=== PATIENT | female | born 1970 | race Caucasian/White ===

== ENCOUNTER 2018-07-06 08:23 | Outpatient (REF) | payer BC, SELFPAY ==
[2018-07-06 12:07] LABS: ALT 34 U/L (12-78); AST 17 U/L (15-37); Albumin 3.3 g/dL (3.4-5.0); Alkaline Phosphatase 69 U/L (46-116); Anion Gap 10.7 mmol/L (3-11); BUN 19 mg/dL (7-18); Bilirubin, Total 0.3 mg/dL (0.2-1.0); CO2 26.3 mmol/L (21.0-32.0); CREATININE 0.84 mg/dL (0.55-1.02); Chloride 102 mmol/L (98-107); Glucose 173 mg/dL (70-100); Potassium 4.3 mmol/L (3.5-5.1); Sodium 139 mmol/L (136-145); Total Protein 7.1 g/dL (6.4-8.2)
== END 2018-07-06 08:43 ==
LOC: NCHCN 08:23
PROVIDERS: PCP Nurse Practitioner Family; Visit Provider Nurse Practitioner
DX: I10 Essential (primary) hypertension (principal); E11.9 Type 2 diabetes mellitus without complications; E78.5 Hyperlipidemia, unspecified
CPT/HCPCS: 80053

== ENCOUNTER 2018-07-19 17:29 | Outpatient (REF) | payer BC, SELFPAY ==
[2018-07-19 19:13] LABS: COMMENT (LAB VIEW ONLY) 74.13 mg/dL; Microalb ug/mg Crea 70.3 ug/mg Cr
== END 2018-07-19 17:49 ==
LOC: NCHCN 17:29
PROVIDERS: PCP Nurse Practitioner Family; Visit Provider Nurse Practitioner
DX: I10 Essential (primary) hypertension (principal); E11.9 Type 2 diabetes mellitus without complications
CPT/HCPCS: 82043; 82570

== ENCOUNTER 2018-11-12 00:36 | Outpatient (CLI) | payer BC, SELFPAY ==
--- NOTE | 2018-11-12 11:00 | DI.CT_ITS ---
SYMPTOMS/DIAGNOSIS: CHRONIC MAXILLARY SINUSITIS, J32.[address]: The exam was performed according to the Tizaro protocol. There is circumferential mucosal thickening in the left maxillary sinus with an additional smaller air fluid level. A small amount of mucous is seen at the floor of the right maxillary sinus. There is mild ethmoid sinus mucosal thickening. The sphenoid and frontal sinuses as well as mastoid air cells appear clear. No sinus expansion or bony erosions are seen. The orbits are unremarkable. IMPRESSION: Mild chronic sinus disease greatest of the left maxillary sinus with superimposed air fluid level which may indicate superimposed acute sinusitis.
== END 2018-11-12 00:56 ==
PROVIDERS: PCP Nurse Practitioner; Visit Provider Otolaryngology Otolaryngology/Facial Plastic Surgery
DX: J32.0 Chronic maxillary sinusitis (principal); J01.00 Acute maxillary sinusitis, unspecified
CPT/HCPCS: 70486

== ENCOUNTER 2019-01-27 17:33 | Emergency (ER) | payer BC, SELFPAY ==
--- NOTE | 2019-01-27 17:40 | NUR.NOTE ---
pt states that approximately a month ago she developed pain in her right elbow that has gradual increased pain is primarily there when she straightness her arm. pt has an appointment with her PCP on Thursday however felt that this could not wait
[2019-01-27 17:43] VITALS: PULSE 80; RESP 17; TEMP 36.7; O2SAT 97
--- NOTE | 2019-01-27 17:52 | W.ED.GENAD ---
Discharge Plan Disposition Patient Disposition: HOME Condition: Improving Discharge Details Chief Complaint: Orthopedic Clinical Impression: Epicondylitis, lateral, right Primary Care Provider: Deidra Davis ED Provider: Martin Mehta Home Meds and New Rx's Prescriptions: Continued metformin [Glucophage] 1,000 MG tablet 1,000 mg PO BID@0800,1700 RF: 0 glyburide [Diabeta] 2.5 MG tablet 2.5 mg PO DAILY RF: 0 lisinopril 2.5 MG tablet 1.5 mg PO DAILY RF: 0 naproxen 500 MG tablet 500 mg PO BID PRN PRNQty: 20 RF: 0 Discharge Instructions Additional Instructions: Remove Lidoderm patch in 12 hours time. Follow-up with physical therapy as prescribed. Sling as needed for comfort. May use Tylenol and/or naproxen as needed for pain. Return for any worsening or acute concern Stand Alone Forms: Physical Therapy Referral Medical Decision Making 40-year-old female presents from home with right arm pain that worsened after spring cleaning. She has localized right lateral epicondylar tenderness. Must rule out underlying bony sister occult fracture, more consistent with lateral epicondylitis. Radiograph obtained without evidence of underlying bony injury. Patient given sling, Lidoderm patch, instructions for outpatient care with referral to physical therapy as she may benefit from iontophoresis. [facility] General Mode of arrival: ambulatory. Date/Time Provider Initiated Documentation: 01/27/19 17:45. Limitations to Documentation: no limitations. Information obtained by: patient. History of Present Illness 48 year old F presents to the emergency department with the chief complaint of Right elbow pain, worse after spring cleaning, described as moderate and similar to prior episodes, Quality is described as dull and constant, and is localized to the right and upper extremity. Patient reports no radiation. Patient started experiencing this hour(s) and it has been constant. Rest improves symptom(s), Movement worsens symptoms . Patient notes no other symptoms.. Patient did receive the following treatments prior to arrival, none Related Data Home Medications Medication Instructions Recorded Confirmed glyburide [Diabeta] 2.5 mg PO DAILY 02/17/13 01/27/19 lisinopril 1.5 mg PO DAILY 02/17/13 01/27/19 metformin [Glucophage] 1,000 mg PO BID@0800,1700 02/17/13 01/27/19 naproxen 500 mg PO BID PRN PRN #20 tab 10/08/14 01/27/19 Previous Rx's Medication Instructions Recorded naproxen 500 mg PO BID PRN PRN #20 tab 10/08/14 Allergies Allergy/AdvReac Type Severity Reaction Status Date / Time Iodinated Contrast- Oral and Allergy Severe Unverified 01/27/19 17:47 IV Dye azithromycin Allergy Unknown unknown Unverified 01/27/19 17:47 tramadol HCl [From Ultram] Allergy Unknown see Unverified 01/27/19 17:47 comments General Stated Complaint: Orthopedic GENO: 5 Review of Systems Review of Systems No direct trauma. No numbness or tingling. Patient has otherwise recently been well. 6 systems reviewed and otherwise negative REPLACED BY [facility] Social History Smoking/Tobacco Use Status: Never Alcohol Intake: never Drug use: Never Substance use type: does not use Do you feel safe at home: Yes Do you feel safe in your relationship?: Yes Exam Narrative Exam Narrative: GEN: awake, alert, oriented 3. Pleasant, well groomed, interactive. HEAD: Normocephalic, atraumatic ENT: Mucous membranes moist, oropharynx unremarkable, External ear exam unremarkable EYES: PERRL, EOMI NECK: Full ROM, no ROBERT, no menigismus CHEST/RESP: Nontender, clear to auscultation bilateral, no wheeze/rhonchi/rales CARDIOVASCULAR: RRR, no murmur, rub cameron. 2+ Rad pulse bilateral EXT: Full ROM, no edema, no rash. Right lateral epicondylar tenderness, worse with resisted extension of the wrist. Sensation intact throughout. Normal capillary refill Neuro: Grossly normal neurologic exam, conversant, interactive. Psych: Speech fluent, thoughts congruent, affect normal Course Vital Signs Temperature 36.7 C 01/27/19 17:43 Pulse 80 01/27/19 17:43 Respiratory Rate 17 01/27/19 17:43 Pulse Oximetry 97 01/27/19 17:43 Temperature 36.7 C 01/27/19 17:43 Temperature Source Skin 01/27/19 17:43 Pulse 80 01/27/19 17:43 Respiratory Rate 17 01/27/19 17:43 Respiratory Effort 01/27/19 17:48 Blood Pressure Position Sitting 01/27/19 17:43 Pulse Oximetry 97 01/27/19 17:43 Oxygen Delivery Method Room Air 01/27/19 17:43 Oxygen Flow Rate 0 01/27/19 17:43 Pain Level 10 01/27/19 17:43
--- NOTE | 2019-01-27 18:37 | DI.RAD_ITS ---
SYMPTOM/DIAGNOSIS: WORSENING RT ELBOW PAIN RIGHT ELBOW: No fracture or dislocation is seen. No joint effusion or significant degenerative changes are identified. No joint space loose bodies are seen. IMPRESSION: Negative right elbow.
[2019-01-27] MEDS: Lidocaine 5% Patch 1 PATCH TP (18:45)
--- NOTE | 2019-01-27 19:10 | DI.VRAD_ITS ---
EXAM: XR Right Elbow Complete, 3 or more Views EXAM DATE/TIME: 01/27/2019 6:36 PM CLINICAL HISTORY: 48 years old, female; Patient HX: Increasing right elbow pain. TECHNIQUE: Imaging protocol: XR Right elbow. Views: 3 or more views. COMPARISON: No relevant prior studies available. FINDINGS: Bones/joints: Osseous anatomic alignment is well preserved. No acutely displaced fracture or dislocation. Joint spaces are well preserved. Soft tissues: Normal. IMPRESSION: Etiology of the patient's elbow pain is not elucidated in this examination. Dictated and Authenticated by: Bradford Hanley MD. Ordering:LOGAN Salazar MD
[2019-01-27 19:32] VITALS: PULSE 80; RESP 17; TEMP 36.7; O2SAT 97
== END 2019-01-27 19:33 | disposition home or self-care (01) ==
PROVIDERS: Emergency Provider Emergency Medicine; PCP Nurse Practitioner
DX: M77.11 Lateral epicondylitis, right elbow (principal)
CPT/HCPCS: 99283; 73080; L3650

== ENCOUNTER 2019-10-01 09:58 | Outpatient (CLI) | payer BC, SELFPAY ==
[2019-10-01 10:51] LABS: Hemoglobin A1C 9.8 % (3.8-5.6)
[2019-10-01 12:18] LABS: Calculated LDL 126 mg/dL; Cholesterol 216 mg/dL (<200); HDL Cholesterol 37 mg/dL (40-60); Triglyceride 268 mg/dL (<150)
== END 2019-10-01 10:18 ==
PROVIDERS: PCP Nurse Practitioner; Visit Provider Nurse Practitioner
DX: E11.9 Type 2 diabetes mellitus without complications (principal); Z13.6 Encounter for screening for cardiovascular disorders
CPT/HCPCS: 36415; 80061; 83036

== ENCOUNTER 2020-02-20 04:14 | Outpatient (CLI) | payer BC, SELFPAY ==
[2020-02-20 08:02] LABS: Hemoglobin A1C 6.9 % (3.8-5.6)
[2020-02-20 08:55] LABS: Calculated LDL 103 mg/dL (<100); Cholesterol 179 mg/dL (<200); HDL Cholesterol 36 mg/dL (40-60); Triglyceride 204 mg/dL (<150)
== END 2020-02-20 04:34 ==
PROVIDERS: PCP Nurse Practitioner; Visit Provider Nurse Practitioner
DX: E11.65 Type 2 diabetes mellitus with hyperglycemia (principal); E78.1 Pure hyperglyceridemia
CPT/HCPCS: 36415; 80061; 83036

== ENCOUNTER 2021-02-22 21:24 | Outpatient (REF) | payer BC, SELFPAY ==
[2021-02-24 22:36] LABS: COVID-19 RT-PCR UVMMC Result Positive (Negative)
== END 2021-02-22 21:25 | disposition home or self-care (01) ==
LOC: LBN 21:24
PROVIDERS: PCP Nurse Practitioner; Visit Provider Nurse Practitioner Family
DX: Z20.822 Contact with and (suspected) exposure to COVID-19 (principal); J02.9 Acute pharyngitis, unspecified
CPT/HCPCS: U0003

== ENCOUNTER 2021-09-03 20:44 | Outpatient (REF) | payer BC, SELFPAY ==
[2021-09-03 22:10] LABS: Abs Immature Grans 0.04 10^3/uL (0.0-0.06); Absolute Basophil Count 0.09 10^3/uL (0.0-0.2); Absolute Eosinophil Count 0.21 10^3/uL (0.0-0.7); Absolute Lymphocyte Count 2.82 10^3/uL (1.2-3.4); Absolute Monocyte Count 0.71 10^3/uL (0.1-0.8); Absolute Neutrophil Count 6.96 10^3/uL (1.2-6.7); Basophils % 0.8; Eosinophils % 1.9; HCT 41.5 % (36.0-46.0); HGB 13.2 g/dL (11.2-15.7); Immature Grans % 0.4; MCH 27.3 pg (27.0-33.0); MCHC 31.8 % (32.0-36.0); MCV 85.9 fL (80-95); Monocytes % 6.6; Neutrophils % 64.3; Nucleated RBC 0 %; Platelet Count 402 10^3/uL (130-400); RBC 4.83 10^6/uL (3.93-5.22); RDW 13.8 % (11.7-14.6); RDW-SD 43.5 fL; WBC 10.83 10^3/uL (4.4-10.8)
[2021-09-03 22:12] LABS: Bilirubin Negative (Negative); Blood Trace-lysed (Negative); Clarity Clear (Clear); Glucose 100 mg/dL (Negative); Ketones Negative (Negative); Leukocyte Esterase Trace (Negative); Nitrite Negative (Negative); Urobilinogen 0.2 EU/dL (Up TO 0.2)
[2021-09-03 22:23] LABS: ALT 34 U/L (14-59); AST 16 U/L (15-37); Albumin 3.3 g/dL (3.4-5.0); Alkaline Phosphatase 80 U/L (46-116); Anion Gap 10.1 mmol/L (3-11); BUN 10 mg/dL (7-18); Bilirubin, Total 0.2 mg/dL (0.2-1.0); CO2 25.9 mmol/L (21.0-32.0); CREATININE 1.1 mg/dL (0.55-1.02); Calcium 8.9 mg/dL (8.5-10.1); Chloride 100 mmol/L (98-107); Estimated GFR 52.36 (mL/min/1.73m2); Glucose 248 mg/dL (74-106); Potassium 4.5 mmol/L (3.5-5.1); Sodium 136 mmol/L (136-145); Total Protein 7.5 g/dL (6.4-8.2)
[2021-09-03 22:37] LABS: Bacteria Rare HPF (Negative); C & S Indicated? No; Crystals Negative HPF (Negative); Epithelial Cells Many HPF (Negative); Mucus Negative (Negative); RBC 0-2 HPF (0-2)
== END 2021-09-03 20:45 | disposition home or self-care (01) ==
LOC: LBN 20:44
PROVIDERS: PCP Nurse Practitioner; Visit Provider Nurse Practitioner Family
DX: R10.9 Unspecified abdominal pain (principal); R39.89 Other symptoms and signs involving the genitourinary system
CPT/HCPCS: 80053; 81003; 81015; 85025

== ENCOUNTER 2021-09-17 03:13 | Outpatient (CLI) | payer BC, SELFPAY ==
[2021-09-17 07:37] LABS: HCT 42.6 % (36.0-46.0); HGB 13.3 g/dL (11.2-15.7); MCHC 31.2 % (32.0-36.0); MCV 86.6 fL (80-95); MPV 9.7 fL (8.0-11.0); Platelet Count 355 10^3/uL (130-400); RBC 4.92 10^6/uL (3.93-5.22); WBC 12.84 10^3/uL (4.4-10.8)
== END 2021-09-17 03:14 | disposition home or self-care (01) ==
LOC: LBO 03:13
PROVIDERS: PCP Nurse Practitioner; Visit Provider Nurse Practitioner
DX: D72.829 Elevated white blood cell count, unspecified (principal)
CPT/HCPCS: 36415; 85027

== ENCOUNTER 2021-10-01 02:35 | Outpatient (CLI) | payer BC, SELFPAY ==
[2021-10-01 07:40] LABS: Abs Immature Grans 0.05 10^3/uL (0.0-0.06); Absolute Basophil Count 0.13 10^3/uL (0.0-0.2); Absolute Eosinophil Count 0.39 10^3/uL (0.0-0.7); Absolute Monocyte Count 0.74 10^3/uL (0.1-0.8); Absolute Neutrophil Count 7.06 10^3/uL (1.2-6.7); Basophils % 1.1; Eosinophils % 3.4; HCT 42.4 % (36.0-46.0); HGB 13.3 g/dL (11.2-15.7); Immature Grans % 0.4; Lymphocytes % 27.7; MCH 27.1 pg (27.0-33.0); MCHC 31.4 % (32.0-36.0); MCV 86.4 fL (80-95); MPV 9.5 fL (8.0-11.0); Monocytes % 6.4; Nucleated RBC 0 %; Platelet Count 399 10^3/uL (130-400); RBC 4.91 10^6/uL (3.93-5.22); RDW 14.1 % (11.7-14.6); RDW-SD 44.9 fL; WBC 11.57 10^3/uL (4.4-10.8)
== END 2021-10-01 02:36 | disposition home or self-care (01) ==
LOC: LBO 02:35
PROVIDERS: PCP Nurse Practitioner; Visit Provider Nurse Practitioner
DX: D72.829 Elevated white blood cell count, unspecified (principal)
CPT/HCPCS: 36415; 85025

== ENCOUNTER 2021-12-11 20:38 | Outpatient (REF) | payer BC, SELFPAY ==
[2021-12-11 20:48] LABS: Bilirubin Negative (Negative); Blood Large (Negative); Clarity Sl Cloudy (Clear); Glucose 500 mg/dL (Negative); Ketones Negative (Negative); Leukocyte Esterase Small (Negative); Nitrite Negative (Negative); Urobilinogen 0.2 EU/dL (Up TO 0.2)
[2021-12-11 20:55] LABS: Bacteria Rare HPF (Negative); C & S Indicated? No/Sq. Contamination; Crystals Negative HPF (Negative); Epithelial Cells Many HPF (Negative); Mucus Negative (Negative); RBC >50 HPF (0-2)
== END 2021-12-11 20:39 | disposition home or self-care (01) ==
LOC: LBN 20:38
PROVIDERS: PCP Nurse Practitioner; Visit Provider Physician Assistant
DX: N39.0 Urinary tract infection, site not specified (principal); N76.0 Acute vaginitis
CPT/HCPCS: 81003; 81015; 87480; 87510; 87660

== ENCOUNTER 2022-02-05 19:43 | Outpatient (REF) | payer BC, SELFPAY ==
[2022-02-05 19:55] LABS: Bilirubin Negative (Negative); Blood Large (Negative); Clarity Clear (Clear); Glucose Negative (Negative); Ketones Negative (Negative); Leukocyte Esterase Small (Negative); Nitrite Negative (Negative); Urobilinogen 0.2 EU/dL (Up TO 0.2); pH 5.5 (5-8)
[2022-02-05 20:05] LABS: Bacteria Negative HPF (Negative); C & S Indicated? Yes; Crystals Negative HPF (Negative); Epithelial Cells Moderate HPF (Negative); Mucus Negative (Negative); RBC >50 HPF (0-2)
== END 2022-02-05 19:44 | disposition home or self-care (01) ==
LOC: LBN 19:43
PROVIDERS: PCP Nurse Practitioner; Visit Provider Physician Assistant
DX: R39.89 Other symptoms and signs involving the genitourinary system (principal)
CPT/HCPCS: 81003; 81015; 87086

== ENCOUNTER 2022-02-07 02:03 | Outpatient (CLI) | payer BC, SELFPAY ==
[2022-02-07 08:49] LABS: Abs Immature Grans 0.06 10^3/uL (0.0-0.06); Absolute Eosinophil Count 0.18 10^3/uL (0.0-0.7); Absolute Monocyte Count 0.63 10^3/uL (0.1-0.8); Absolute Neutrophil Count 6.37 10^3/uL (1.2-6.7); Eosinophils % 1.8; HCT 43.2 % (36.0-46.0); HGB 13.9 g/dL (11.2-15.7); Immature Grans % 0.6; Lymphocytes % 26.9; MCH 26.8 pg (27.0-33.0); MCHC 32.2 % (32.0-36.0); MCV 83 fL (80-95); MPV 9.7 fL (8.0-11.0); Monocytes % 6.3; Neutrophils % 63.4; Platelet Count 421 10^3/uL (130-400); RBC 5.18 10^6/uL (3.93-5.22); RDW 14.8 % (11.7-14.6); RDW-SD 45.1 fL; WBC 10.04 10^3/uL (4.4-10.8)
[2022-02-07 09:55] LABS: ALT 52 U/L (14-59); AST 34 U/L (15-37); Albumin 3.7 g/dL (3.4-5.0); Alkaline Phosphatase 74 U/L (46-116); Anion Gap 11.7 mmol/L (3-11); BUN 16 mg/dL (7-18); Bilirubin, Total 0.3 mg/dL (0.2-1.0); CO2 23.3 mmol/L (21.0-32.0); Calcium 9.1 mg/dL (8.5-10.1); Chloride 105 mmol/L (98-107); Estimated GFR 58.45 (mL/min/1.73m2); Glucose 190 mg/dL (74-106); Potassium 4.8 mmol/L (3.5-5.1); Sodium 140 mmol/L (136-145); Total Protein 7.7 g/dL (6.4-8.2)
== END 2022-02-07 02:04 | disposition home or self-care (01) ==
LOC: LBO 02:03
PROVIDERS: PCP Nurse Practitioner; Visit Provider Physician Assistant
DX: R10.9 Unspecified abdominal pain (principal)
CPT/HCPCS: 36415; 80053; 85025

== ENCOUNTER 2022-06-26 01:04 | Outpatient (CLI) | payer BC, SELFPAY ==
--- NOTE | 2022-06-26 07:07 | DI.NM_ITS ---
APPROVED REPORT Exam: Exercise Treadmill Patient Location: Out-Patient Room/Bed: Stress Nurse: Elissa Goncalves RN Ordering Provider:CHAPITO ONEAL, Contact Number: [phone] BMI: 34.00 Baseline Rhythm: Sinus Rhythm Indications: Chest pain Medical History Medical History: DM2. HTN. Single Kidney. Hypertriglyceridemia. Cardiac Medications: Amlodipine. Losartan. Metformin. Semaglutide. Glargine Insulin. Allergies: Iodinated Contrast. Azithromycin. Tramadol. Cardiac Risk Factors: Family history. HTN. DM2. HTN. Hypertriglceridemia. Previous Cardiac Procedures: None. Pretest Chest Pain Characteristics: No chest pain Exercise History: Sedentary Physical Disabilities: None. Lung Sounds: Clear to auscultation Heart Sounds: Regular Stress Test Details Test: Exercise stress testing was performed using a Michele protocol. Nuclear Acquisition: Rest Tc-99m/Stress Tc-99m 1 day Rest Isotope: Tc-99m Sestamibi. Dose: 10.7 Date: 06/26/2022 Injection Time: 0850 Stress Isotope: Tc-99m Sestamibi. Dose: 31 Date: 06/26/2022 Injection Time: 1010 HR Resting HR Supine: 80 bpm Max Heart Rate (APMHR): 168.304244 bpm Resting HR Standin bpm Target HR (85% APMHR): 142.463137 bpm Max HR Achieved: 158 bpm % of APMHR: 94.05 Recovery HR: 103 bpm HR response to stress: Normal HR response to stress BP Resting BP Supine: 152/80 mmHg Resting BP Standin/84 mmHg Max BP: 194/60 mmHg Recovery BP: 150/84 mmHg BP response to stress: Normal blood pressure response to stress. ECG Resting ECG: Sinus Rhythm Ectopy: None Stress ECG: Sinus Tachycardia ST Change: No significant ST segment changes noted Arrhythmia: None Recovery ECG: Sinus Rhythm Recovery ST Change: No significant ST segment changes noted Recovery Arrhythmia: None Clinical Reason for Termination: Fatigue Stress Symptoms: General Fatigue Exercise duration: 8 min2 sec Highest Stage Reached: Stage 3: 3.4 mph at 14% grade. Exercise capacity: 10 METs Scale: Sedentary Angina Score: None Rate Pressure Product: [id number] Stress ECG Conclusion 1. Resting electrocardiogram was within normal limits 2. Patient exercised on the Michele protocol and completed a workload of 10 METS 3. Normal heart rate and blood pressure response to exercise. The patient achieved 92% of predicted heart rate for age 4. Electrocardiographic portion of the test was nondiagnostic due to excessive artifact 5. See MPI report Stress Test Summary STAGE Time (mins) Speed (mph) Grade (%) HR BP SpO2 SYMPTOMS METS Supine 80 152/80 Standing 98 150/84 1 3 1.7 10 126 156/74 4.5 2 6 2.5 12 136 164/78 7 1 min recovery 133 194/60 98 3 min recovery 108 168/70 6 min recovery 103 150/84 MPI Conclusion Myocardial perfusion is normal without evidence of ischemia or prior infarction EF 57%, normal wall motion Radiologist Interpretation Radiologist Interpretation by: Sarabjit Julio MD Interpretation Date/Time: 06/26/2022 16:54:29
== END 2022-06-26 01:24 ==
LOC: DI 01:04
PROVIDERS: PCP Nurse Practitioner Family; Visit Provider Family Medicine
DX: R07.9 Chest pain, unspecified (principal); I10 Essential (primary) hypertension; E11.9 Type 2 diabetes mellitus without complications; E78.1 Pure hyperglyceridemia
CPT/HCPCS: 78452; 93017

== ENCOUNTER 2022-12-15 10:21 | Outpatient (CLI) | payer BC, SELFPAY ==
--- NOTE | 2022-12-15 10:00 | DI.RAD_ITS ---
Exam(s) XR CHEST 2V PA LATERAL EXAM: XR CHEST 2V PA LATERAL CLINICAL HISTORY: no improvement COUGH R05.9. TECHNIQUE: 2D digital imaging was performed. COMPARISON: No exams were available for comparison FINDINGS: 2 views: Heart size is normal. The mediastinum is not widened. Lungs are clear. No infiltrates nor pleural effusions. IMPRESSION: No acute pulmonary findings. DATA REPOSITORY: RADIATION DOSE DELIVERED:
== END 2022-12-15 10:41 ==
LOC: DI 10:22
PROVIDERS: PCP Nurse Practitioner Family; Visit Provider Nurse Practitioner Family
DX: R05.8 Other specified cough (principal)
CPT/HCPCS: 71046

== ENCOUNTER 2023-01-01 02:37 | Outpatient (CLI) | payer BC, SELFPAY ==
--- NOTE | 2023-01-01 07:45 | DI.RAD_ITS ---
Exam(s) XR SHOULDER LT COMPLETE 2+V EXAM: XR SHOULDER LT COMPLETE 2+V CLINICAL HISTORY: LROM x 2 weeks, no trauma,LT SHOULDER PAIN, M25.512. TECHNIQUE: 2D digital imaging was performed. Five views. COMPARISON: No exams were available for comparison FINDINGS: BONES: No acute fracture is present. No bony destructive lesion is seen. JOINTS: No dislocation present. Mild spurring at the AC joint and inferior glenoid. Glenohumeral sammy int space is maintained. SOFT TISSUE: Calcifications seen anterior to humeral head on the axillary view. IMPRESSION: Tendinosis. Mild degenerative changes. DATA REPOSITORY: RADIATION DOSE DELIVERED:
== END 2023-01-01 02:57 ==
LOC: DI 02:37
PROVIDERS: PCP Nurse Practitioner Family; Visit Provider Nurse Practitioner Family
DX: M25.512 Pain in left shoulder (principal)
CPT/HCPCS: 73030

== ENCOUNTER 2023-07-21 01:15 | Outpatient (CLI) | payer BC, SELFPAY ==
[2023-07-21 07:43] LABS: HCT 42.7 % (36.0-46.0); HGB 13.6 g/dL (11.2-15.7); MCH 25.9 pg (27.0-33.0); MCHC 31.9 % (32.0-36.0); MCV 81 fL (80-95); MPV 10.1 fL (8.0-11.0); Platelet Count 336 10^3/uL (130-400); RBC 5.25 10^6/uL (3.93-5.22); RDW 14.9 % (11.7-14.6); RDW-SD 43.6 fL; WBC 9.69 10^3/uL (4.4-10.8)
[2023-07-21 08:10] LABS: ALT 37 U/L (14-59); AST 15 U/L (15-37); Albumin 3.2 g/dL (3.4-5.0); Alkaline Phosphatase 84 U/L (46-116); Anion Gap 11.7 mmol/L (3-11); BUN 14 mg/dL (7-18); Bilirubin, Total 0.2 mg/dL (0.2-1.0); CO2 22.3 mmol/L (21.0-32.0); Calcium 8.9 mg/dL (8.5-10.1); Chloride 102 mmol/L (98-107); Cholesterol 217 mg/dL (<200); Estimated GFR 67.36 (mL/min/1.73m2); Glucose 168 mg/dL (74-106); HDL Cholesterol 43 mg/dL (40-60); Potassium 4.1 mmol/L (3.5-5.1); Sodium 136 mmol/L (136-145); Total Protein 7.7 g/dL (6.4-8.2); Triglyceride 412 mg/dL (<150)
[2023-07-21 08:27] LABS: LDL CHOLESTEROL 100 mg/dL (<100)
[2023-07-23 12:17] LABS: IgA 458 mg/dL (85-499); Interpretation (See Note); Tissue Transglutaminase IgA <1.2 U/mL (<4.0)
== END 2023-07-21 01:16 | disposition home or self-care (01) ==
LOC: LBO 01:15
PROVIDERS: PCP Nurse Practitioner Family; Visit Provider Nurse Practitioner Family
DX: E78.1 Pure hyperglyceridemia (principal); K52.9 Noninfective gastroenteritis and colitis, unspecified
CPT/HCPCS: 36415; 80053; 80061; 82784; 83516; 83721; 85027

== ENCOUNTER → 2023-09-16 02:07 | Outpatient (CLI) | payer BC, SELFPAY ==
--- NOTE | 2023-09-16 07:45 | DI.MAMMO_ITS ---
Exam(s) MAMMO SCREENING EXAM: MAMMO SCREENING CLINICAL HISTORY: screening,z12.39 TECHNIQUE: Mammograms were interpreted according to the usual protocol including computer analysis w [employer] CAD system, tomosynthesis and C-view imaging. COMPARISON: 2013 and 2015 from [facility]. FINDINGS: The breasts are composed of heterogeneously dense fibroglandular densities, Breast Density category C . No suspicious masses or suspicious microcalcifications are seen. No skin thickening or abnormal axillary lymph nodes are seen. There has been no significant change from prior exams. IMPRESSION: BI-RADS Category 1, Negative mammogram. Yearly screening mammography is recommended. Breast Density Category C, heterogeneously Dense. The mammogram demonstrates the patient's breast tissue is dense. Dense breast tissue is very common a nd is not abnormal but dense breast tissue can make it harder to find cancer on a mammogram. Also, de nse breast tissue may increase breast cancer risk. This information about the result of the mammogram report was provided to the patient to raise their awareness. Use this report when you speak with the patient about their risks for breast cancer, which includes their family history. At that time, you may recommend additional screening tests (Ultrasound or MRI) as they might be useful based on their r isk. A negative radiographic report should not delay biopsy if a dominant or clinically suspicious mass is present. Up to ten percent of cancers are not identified on mammography. A negative report may reinforce clinical impression. Adenosis and dense breasts may obscure an underlying neoplasm. False positive reports average 6 to 10%.
== END ==
PROVIDERS: PCP Nurse Practitioner Family; Visit Provider Nurse Practitioner Family
DX: Z12.31 Encounter for screening mammogram for malignant neoplasm of breast (principal)
CPT/HCPCS: 77063; 77067

== ENCOUNTER 2024-04-16 21:05 | Emergency (ER) | payer BC, SELFPAY ==
[2024-04-16] VITALS (25 sets, daily range): BP systolic 173–203; BP diastolic 81–97; PULSE 106–116; RESP 13–29; TEMP 36.6; O2SAT 91–99
--- NOTE | 2024-04-16 21:00 | RT.EKG_ITS ---
APPROVED REPORT Exam: Resting ECG Reason for Exam: sob Patient Location: E HR:112 bpm ECG Measurements Heart Rate 112 AXIS SC 158 P 54 QRSd 93 QRS 59 QT 333 T 31 QTc 455 Conclusion Sinus tachycardia...rate> 99 Probable left atrial enlargement...P >50mS, <-0.10mV V1 Anterior infarct, old...Q >40mS, abnormal ST-T, V2-V5 appropriate intervals no ST segment or T wave abnormalitites to suggest occlusive DC
[2024-04-16 22:07] LABS: COVID-19 PCR Negative (Negative); Influenza A PCR Negative (Negative); Influenza B PCR Negative (Negative); RSV PCR Negative (Negative)
[2024-04-16 22:11] LABS: Source Nasopharynx
[2024-04-16 22:24] LABS: Abs Immature Grans 0.08 10^3/uL (0.0-0.06); Absolute Eosinophil Count 0.23 10^3/uL (0.0-0.7); Absolute Lymphocyte Count 3.71 10^3/uL (1.2-3.4); Absolute Monocyte Count 0.91 10^3/uL (0.1-0.8); Basophils % 0.9 %; Eosinophils % 1.8 %; HCT 44.2 % (36.0-46.0); HGB 14.7 g/dL (11.2-15.7); Immature Grans % 0.6 %; Lymphocytes % 28.8 %; MCH 27.9 pg (27.0-33.0); MCHC 33.3 % (32.0-36.0); MCV 84 fL (80-95); MPV 10.8 fL (8.0-11.0); Monocytes % 7.1 %; Neutrophils % 60.8 %; Platelet Count 336 10^3/uL (130-400); RBC 5.26 10^6/uL (3.93-5.22); RDW 14.8 % (11.7-14.6); RDW-SD 44.7 fL; WBC 12.88 10^3/uL (4.4-10.8)
[2024-04-16 22:26] LABS: Absolute Basophil Count 0.12 10^3/uL (0.0-0.2); Absolute Neutrophil Count 7.83 10^3/uL (1.2-6.7)
[2024-04-16] MEDS: Albuterol 2.5 MG/3 ML INH SOLN VIAL UPD (22:33)
[2024-04-16] MEDS: Normal Saline 1,000 ML 500 ML IV (22:33)
[2024-04-16] MEDS: Normal Saline - Diluent 50 ML VIAL IJ (22:40)
[2024-04-16 22:44] LABS: Albumin 3.2 g/dL (3.4-5.0); Alkaline Phosphatase 107 U/L (46-116); Anion Gap 11.5 mmol/L (3-11); BUN 16 mg/dL (7-18); Bilirubin, Total 0.37 mg/dL (0.2-1.0); CO2 26.5 mmol/L (21.0-32.0); CREATININE 1.2 mg/dL (0.55-1.02); Calcium 8.9 mg/dL (8.5-10.1); Chloride 98 mmol/L (98-107); Estimated GFR 53.79 (mL/min/1.73m2); NT-proBNP 199 pg/mL (<300); Potassium 3.9 mmol/L (3.5-5.1); Sodium 136 mmol/L (136-145); Total Protein 7.9 g/dL (6.4-8.2); Troponin I < 50 ng/L (< or =60)
[2024-04-16 22:46] LABS: Glucose 504 mg/dL (74-106)
[2024-04-16 22:48] LABS: Magnesium 1.7 mg/dL (1.8-2.4); TSH (W/Ref FT4) 2.59 uIU/mL (0.36-3.74)
--- NOTE | 2024-04-16 22:48 | DI.RAD_ITS ---
Exam(s) XR CHEST 2V PA LATERAL EXAM: XR CHEST 2V PA LATERAL CLINICAL HISTORY: shortness of breath, coarse lung sounds TECHNIQUE: 2D digital imaging was performed. Two views. COMPARISON: CR XR CHEST 2V PA LATERAL from 12/15/2022 FINDINGS: Multiple leads overlie the chest. HEART: Normal size. Aorta: Not dilated. PULMONARY VASCULATURE: Normal. MEDIASTINUM: Unremarkable. LUNGS: Clear. PLEURAL SPACE: No pleural effusion or pneumothorax. BONE:Unremarkable for age. SOFT TISSUES: Unremarkable. IMPRESSION: No acute abnormality. DATA REPOSITORY: RADIATION DOSE DELIVERED:
[2024-04-16 23:04] LABS: ALT 39 U/L (14-59); AST 18 U/L (15-37)
[2024-04-16 23:18] LABS: BE (Venous) -2 mmol/L (-2-3); HCO3 (Venous) 23 mmol/L (23-28); O2 Sat (Venous) 93 %; TCO2 (Venous) 21 mmol/L (24-29); pCO2 (Venous) 38 mmHg (41-51); pO2 (Venous) 63 mmHg
--- NOTE | 2024-04-16 23:27 | W.ED.GENAD ---
Discharge Plan Disposition Patient Disposition: Home Condition: Improving Discharge Details Clinical Impression: Bronchitis, Acute dyspnea, Acute hyperglycemia Primary Care Provider: Marcos Sol ED Provider: Guillermina Pressley Home Meds and New Rx's Prescriptions: New doxycycline hyclate 100 mg capsule 100 mg PO BID Qty: 14 0RF prednisone 20 mg tablet 40 mg PO ONCE Qty: 4 0RF Continued metformin 1,000 mg tablet 1,000 mg PO BID@0800,1700 Qty: 180 4RF albuterol sulfate [Proventil HFA] 90 mcg/actuation HFA aerosol inhaler 2 puff inhalation Q6H PRN (Reason: shortness of breath or wheezing) Qty: 8.5 0RF fluticasone propionate [Allergy Relief (fluticasone)] 50 mcg/actuation spray,suspension 2 spray intranasal BID PRN (Reason: allergies) Qty: 15.8 4RF Rx Instructions: Administer 2 sprays into each nostril once a day as needed for allergies losartan 100 mg tablet 100 mg PO DAILY Qty: 90 3RF berberine-herbal comb no.18 Capsule 1 cap PO DAILY glyburide 5 mg tablet 5 mg PO DAILY Qty: 90 4RF insulin glargine [Lantus Solostar U-100 Insulin] 100 unit/mL (3 mL) insulin pen 25 unit SC DAILY Qty: 15 4RF amlodipine 5 mg tablet 5 mg PO DAILY Qty: 90 3RF semaglutide 1 mg/dose (4 mg/3 mL) pen injector 1 mg subcut QWEEK Qty: 3 0RF Rx Instructions: for 4 weeks Discharge Instructions Instructions: Acute bronchitis, High Blood Sugar, Adult ED Additional Instructions: Take the prednisone daily you received a dose this evening you will need your next dose tomorrow followed by the last dose the following day, this will cause her blood sugars to be elevated, if you have sliding scale use your sliding scale Take the doxycycline as prescribed to treat you for bronchitis Use the inhaler, 2 puffs every 4 hours for cough, wheeze, shortness of breath and please follow-up with your doctor on Thursday for reassessment Return to ED for persistently elevated blood sugar, mental status change, difficulty breathing, chest pain, persistent vomiting, other concerns. Referrals: Marcos Sol, UNISAW OPERATOR [Primary Care Provider] - 2 days Discharge Data Discharge Date/Time-TO BE ENTERED AT DEPARTURE: 04/17/24 05:50 HPI General Date/Time Provider Initiated Documentation: 04/16/24 21:31. HPI Narrative: This 54-year-old female with history of hypertension, single kidney, type 2 diabetes uncontrolled, hypertriglyceridemia, and chest pain presents with report of shortness of breath for the past week. She states this is worse with exertion and her heart rate increases into the 130s she states that she is concerned about a pulmonary embolism as she drove to [facility] last week. She states she had some swelling in her right lower extremity which is since resolved but now she has persistent shortness of breath. She denies any fever or chills. She denies any upper respiratory symptoms. She does not smoke tobacco and denies known history of COPD or asthma. She denies any fever. She denies history of similar symptoms in the past. She thinks that her mom had an CA with stent at 62. Patient states she had a stress test 2 years ago and she said it was within normal limits per patient. Patient denies any fever or chills. She states her symptoms are exacerbated with being in the supine position. Related Data Home Medications ?Medication ?Instructions ?Recorded ?Confirmed metformin 1,000 mg tablet 1,000 mg PO BID@0800,1700 #180 tabs 12/29/22 04/16/24 glyburide 5 mg tablet 5 mg PO DAILY #90 tabs 05/22/23 04/16/24 insulin glargine 100 unit/mL (3 25 unit (0.25 mL) subcut DAILY #15 05/29/23 04/16/24 mL) subcutaneous pen (Lantus mL Solostar U-100 Insulin) amlodipine 5 mg tablet 5 mg PO DAILY #90 tabs 06/29/23 04/16/24 losartan 100 mg tablet 100 mg PO DAILY #90 tabs 08/11/23 04/16/24 berberine-herbal comb no.18 capsule 1 cap PO DAILY 08/19/23 04/16/24 albuterol sulfate 90 mcg/actuation 2 puff inhalation Q6H PRN 01/20/24 04/16/24 aerosol inhaler (Proventil HFA) shortness of breath or wheezing #8.5 grams fluticasone propionate 50 2 spray intranasal BID PRN 01/20/24 04/16/24 mcg/actuation nasal allergies #15.8 mL spray,suspension (Allergy Relief (fluticasone)) semaglutide 1 mg/dose (4 mg/3 mL) 1 mg (0.75 mL) subcut QWEEK #3 mL 03/08/24 04/16/24 subcutaneous pen injector doxycycline hyclate 100 mg capsule 100 mg PO BID #14 caps 04/16/24 prednisone 20 mg tablet 40 mg (2 x 20 mg) PO ONCE #4 tabs 04/16/24 Previous Rx's ?Medication ?Instructions ?Recorded metformin 1,000 mg tablet 1,000 mg PO BID@0800,1700 #180 tabs 12/29/22 glyburide 5 mg tablet 5 mg PO DAILY #90 tabs 05/22/23 insulin glargine 100 unit/mL (3 25 unit (0.25 mL) subcut DAILY #15 05/29/23 mL) subcutaneous pen (Lantus mL Solostar U-100 Insulin) amlodipine 5 mg tablet 5 mg PO DAILY #90 tabs 06/29/23 losartan 100 mg tablet 100 mg PO DAILY #90 tabs 08/11/23 albuterol sulfate 90 mcg/actuation 2 puff inhalation Q6H PRN 01/20/24 aerosol inhaler (Proventil HFA) shortness of breath or wheezing #8.5 grams fluticasone propionate 50 2 spray intranasal BID PRN 01/20/24 mcg/actuation nasal allergies #15.8 mL spray,suspension (Allergy Relief (fluticasone)) semaglutide 1 mg/dose (4 mg/3 mL) 1 mg (0.75 mL) subcut QWEEK #3 mL 03/08/24 subcutaneous pen injector doxycycline hyclate 100 mg capsule 100 mg PO BID #14 caps 04/16/24 prednisone 20 mg tablet 40 mg (2 x 20 mg) PO ONCE #4 tabs 04/16/24 Allergies Allergy/AdvReac Type Severity Reaction Status Date / Time Iodinated Contrast Media Allergy Severe vomiting Verified 04/16/24 21:08 blood azithromycin Allergy Unknown unknown Verified 04/16/24 21:08 tramadol HCl (From Ultram) Allergy Unknown see Verified 04/16/24 21:08 comments General Stated Complaint: SOB GENO: 3 Exam Narrative Exam Narrative: 54-year-old female in no acute distress, pupils equal round reactive to light and accommodation, no current respiratory distress but does have some crackles at bases and diminished lung sounds, no murmurs or rubs, tachycardia, no abdominal tenderness, alert and oriented x 4, no peripheral edema, distal pulses intact, no calf swelling or tenderness chest pain since Course Vital Signs Vital signs: Vital Signs Temperature 36.6 C 04/16/24 21:10 Pulse 111 H 04/16/24 21:10 Respiratory Rate 20 04/16/24 21:10 Blood Pressure 173/83 H 04/16/24 21:10 Pulse Oximetry 96 04/16/24 21:10 Temperature 36.6 C 04/16/24 21:10 Temperature Source Temporal Artery Scan 04/16/24 21:10 Pulse 114 H 04/16/24 23:13 Pulse 112 H 04/16/24 23:13 Respiratory Rate 20 04/16/24 23:13 Respiratory Effort Non-Labored, Short of Breath 04/16/24 21:16 Respiratory Depth Normal 04/16/24 21:16 Respiratory Pattern Normal 04/16/24 21:16 Blood Pressure 176/95 H 04/16/24 23:13 Blood Pressure Mean 125 04/16/24 23:13 Blood Pressure Position Sitting 04/16/24 21:10 Pulse Oximetry 93 04/16/24 23:13 Oxygen Delivery Method Room Air 04/16/24 21:10 Oxygen Flow Rate 0 04/16/24 21:10 Pain Level 0 04/16/24 21:10 Lab/Test Results Lab/Test Results: Laboratory Tests Range/Units 04/16/24 04/16/24 04/16/24 21:18 21:33 23:10 WBC (4.4-10.8) 10^3/uL 12.88 H RBC (3.93-5.22) 10^6/uL 5.26 H Hgb (11.2-15.7) g/dL 14.7 Hct (36.0-46.0) % 44.2 MCV (80-95) fL 84 MCH (27.0-33.0) pg 27.9 MCHC (32.0-36.0) % 33.3 RDW (11.7-14.6) % 14.8 H Plt Count (130-400) 10^3/uL 336 MPV (8.0-11.0) fL 10.8 Immature Gran % % 0.6 Neutrophils % % 60.8 Lymphocytes % % 28.8 Monocytes % % 7.1 Eosinophils % % 1.8 Basophils % % 0.9 Nucleated RBC % (0.0-0.3) % 0.0 Absolute Neutrophils (1.2-6.7) 10^3/uL 7.83 H Absolute Lymphocytes (1.2-3.4) 10^3/uL 3.71 H Absolute Monocytes (0.1-0.8) 10^3/uL 0.91 H Absolute Eosinophils (0.0-0.7) 10^3/uL 0.23 Absolute Basophils (0.0-0.2) 10^3/uL 0.12 VBG pH (7.31-7.41) 7.40 VBG pCO2 (41-51) mmHg 38 L VBG pO2 mmHg 63 VBG HCO3 (23-28) mmol/L 23 VBG Total CO2 (24-29) mmol/L 21 L VBG O2 Saturation % 93 VBG Base Excess (-2-3) mmol/L -2 Sodium (136-145) mmol/L 136 Potassium (3.5-5.1) mmol/L 3.9 Chloride (98-107) mmol/L 98 Carbon Dioxide (21.0-32.0) mmol/L 26.5 Anion Gap (3-11) mmol/L 11.5 H BUN (7-18) mg/dL 16 Creatinine (0.55-1.02) mg/dL 1.2 H Est GFR (CKD-EPI 2020) (mL/min/1.73m2) 53.79 Glucose (74-106) mg/dL 504 H* Calcium (8.5-10.1) mg/dL 8.9 Magnesium (1.8-2.4) mg/dL 1.7 L Total Bilirubin (0.2-1.0) mg/dL 0.37 AST (15-37) U/L 18 ALT (14-59) U/L 39 Alkaline Phosphatase (46-116) U/L 107 Troponin I (< or =60) ng/L < 50 NT-Pro-B Natriuret Pep (<300) pg/mL 199 Total Protein (6.4-8.2) g/dL 7.9 Albumin (3.4-5.0) g/dL 3.2 L TSH (0.36-3.74) uIU/mL 2.59 COVID-19 Source Nasopharynx SARS-CoV-2 (PCR) (Negative) Negative Influenza Type A (PCR) (Negative) Negative Influenza Type B (PCR) (Negative) Negative RSV (PCR) (Negative) Negative Medical Decision Making 54-year-old female presenting with report of shortness of breath and dyspnea on exertion. She states has been going on for approximately a week and secondary to persistence of symptoms she presents today. She denies any chest pain. She denies tobacco use. She does have a history of hypertriglyceridemia, hyperlipidemia, and hypertension as well as diabetes. She states she did have a stress test, the stress test was actually nondiagnostic and patient did have an ejection fraction of 57% at time of 2021. Flu, COVID, RSV negative, BNP negative initial troponin negative, mag 1.607, glucose of 504, no evidence of diabetic ketoacidosis. CBC shows leukocytosis, 12,000, chest x-ray does not show obvious evidence of pneumonia although patient has crackles at bases of her lungs with a leukocytosis may consider treatment, feeling mild improvement after an albuterol and DuoNeb. She does remain tachycardic but this could also be secondary to her glucose of 504, I will order a subcutaneous insulin, 10 units with fingerstick recheck in an hour, DuoNebs, pending D-dimer although lower suspicion for pulmonary embolism clinically. Patient reportedly does have a history of allergic reaction to IV contrast in the past with hematemesis per patient. She has not received IV contrast since that time. pt pending reassessment. ambulatory without significant dyspnea or hypoxia. will treat for bronchitis vs pneumonia with doxycycline, prednisone, and duoneb with inhaler for home. Quality:SDOH Health Related Social Needs: No Data to Display PFSH All Active Problems (Updated 04/16/24 @ 23:56 by KIKE Zamora) Acute hyperglycemia (Acute) Acute dyspnea (Acute) Bronchitis (Acute) HTN (hypertension) (Chronic) Single kidney (Acute) DM (diabetes mellitus), type 2, uncontrolled (Acute) Hypertriglyceridemia (Acute) Chest pain (Acute) Left shoulder pain (Acute) Medical History Chronic diarrhea resolved with gluten avoidance Cough Rhinosinusitis Elevated WBC count Incisional hernia Surgical History History of kidney removal left History of cholecystectomy Family History Mother No problems noted. Father , age 61 No problems noted. Brother No problems noted. Brother No problems noted. Son No problems noted. Son No problems noted. Social History (Updated 01/28/24 @ 13:54 by Carmella Caruso) Smoking/Tobacco Use Status: Never Second Hand Exposure: Yes Smoking risk assessment performed?: Yes Alcohol Intake: never Drug use: Never Substance use type: does not use Caregiver/Support person: No Household members: spouse and other Details: Mother Communication Needs: None Pets and animals: No Sexually active: Yes Do you think of yourself as: straight/heterosexual Current gender identity: female What is your relationship status?: How often do you talk on the phone with friends or family?: three or more times per week How often do you get together with friends or relatives?: once per week How often do you attend pentecostal or zoroastrianism services?: 1-3 times per year Do you belong to any clubs or organized social groups?: no Panel score (0-1 are the most socially isolated patients): 2 What type of physical activity do you participate in: walking Frequency: 1-2 times per week Sudha/Quaker: None Special sudha needs: No Seatbelt use: always Helmet use: Yes Helmet use: always Drive intox or ride w/intox driver engineer: No Do you feel safe at home: Yes Do you feel safe in your relationship?: Yes
[2024-04-16] MEDS: Albuterol/Ipratropium 3 ML UPD VIAL UPD (23:28)
[2024-04-16] MEDS: Insulin REGULAR-Human 100 UNITS/ML UNIT 10 UNITS SC (23:29)
[2024-04-16 23:35] LABS: D-Dimer 357 ng/mlFEU (<500)
[2024-04-17] VITALS (31 sets, daily range): BP systolic 150–188; BP diastolic 67–105; PULSE 106–123; RESP 14–36; TEMP 36.3; O2SAT 87–97
--- NOTE | 2024-04-17 00:20 | DI.VRAD_ITS ---
PROCEDURE INFORMATION: Exam: XR Chest Exam date and time: 04/16/2024 10:56 PM Age: 54 years old Clinical indication: Shortness of breath and other: Couse lung sounds TECHNIQUE: Imaging protocol: Radiologic exam of the chest. Views: 2 views. COMPARISON: CR XR CHEST 2V PA LATERAL 12/15/2022 1:35 PM FINDINGS: Tubes, catheters and devices: Monitoring wires noted. Lungs: Unremarkable. No consolidation. Pleural spaces: Unremarkable. No pleural effusion. No pneumothorax. Heart/Mediastinum: Unremarkable. No cardiomegaly. Bones/joints: Unremarkable. IMPRESSION: No acute cardiopulmonary abnormality. Dictated and Authenticated by: Brday Bloom MD. Ordering:SP Sarmiento MD
[2024-04-17] MEDS: Doxycycline Hyclate 100 MG CAP PO (00:22)
[2024-04-17] MEDS: Albuterol HFA 8 GM 60 PUFF INH IH (00:22)
[2024-04-17] MEDS: Inhaler, Assist Device 1 EACH MC (00:22)
[2024-04-17] MEDS: Normal Saline 500 ML IV (00:23)
[2024-04-17] MEDS: predniSONE 20 MG TAB 40 MG PO (00:23)
[2024-04-17] MEDS: Insulin REGULAR-Human 100 UNITS/ML UNIT 10 UNITS SC (01:37)
[2024-04-17] MEDS: Normal Saline 250 ML 500 ML IV (01:42)
[2024-04-17] MEDS: Albuterol 2.5 MG/3 ML INH SOLN VIAL UPD (03:26)
--- NOTE | 2024-04-17 04:53 | ED.PROG_ITS ---
Date of service: 04/17/24 Time of Service: 04:53 Medical Decision Making Patient signed out pending follow-up of blood glucose. Patient had presented with respiratory symptoms. She is much improved after nebs and is ambulatory without shortness of breath she was having before. Blood sugars have been around 500. She has had a total of 20 units subcu regular insulin and 2 L of fluid. Blood sugars have come down slightly. She feels fine and would like to go home. She is able to monitor her sugar at home. She is instructed to take her long-acting insulin, metformin, glyburide this morning as normal. Prescriptions for prednisone and doxycycline have been sent to pharmacy. She has been given an albuterol inhaler. She has to follow-up with primary care in the next 2 to 3 days for recheck. Return precautions provided. Lab Data Lab results reviewed: Yes I reviewed the patient's lab results. Discharge Plan Disposition Patient Disposition: Home Condition: Improving Discharge Details Clinical Impression: Bronchitis, Acute dyspnea, Acute hyperglycemia Primary Care Provider: Marcos Sol ED Provider: Guillermina Pressley Home Meds and New Rx's Prescriptions: New doxycycline hyclate 100 mg capsule 100 mg PO BID Qty: 14 0RF prednisone 20 mg tablet 40 mg PO ONCE Qty: 4 0RF Continued metformin 1,000 mg tablet 1,000 mg PO BID@0800,1700 Qty: 180 4RF albuterol sulfate [Proventil HFA] 90 mcg/actuation HFA aerosol inhaler 2 puff inhalation Q6H PRN (Reason: shortness of breath or wheezing) Qty: 8.5 0RF fluticasone propionate [Allergy Relief (fluticasone)] 50 mcg/actuation spray,suspension 2 spray intranasal BID PRN (Reason: allergies) Qty: 15.8 4RF Rx Instructions: Administer 2 sprays into each nostril once a day as needed for allergies losartan 100 mg tablet 100 mg PO DAILY Qty: 90 3RF berberine-herbal comb no.18 Capsule 1 cap PO DAILY glyburide 5 mg tablet 5 mg PO DAILY Qty: 90 4RF insulin glargine [Lantus Solostar U-100 Insulin] 100 unit/mL (3 mL) insulin pen 25 unit SC DAILY Qty: 15 4RF amlodipine 5 mg tablet 5 mg PO DAILY Qty: 90 3RF semaglutide 1 mg/dose (4 mg/3 mL) pen injector 1 mg subcut QWEEK Qty: 3 0RF Rx Instructions: for 4 weeks Discharge Instructions Instructions: Acute bronchitis, High Blood Sugar, Adult ED Additional Instructions: Take the prednisone daily you received a dose this evening you will need your next dose tomorrow followed by the last dose the following day, this will cause her blood sugars to be elevated, if you have sliding scale use your sliding scale Take the doxycycline as prescribed to treat you for bronchitis Use the inhaler, 2 puffs every 4 hours for cough, wheeze, shortness of breath and please follow-up with your doctor on Thursday for reassessment Return to ED for persistently elevated blood sugar, mental status change, difficulty breathing, chest pain, persistent vomiting, other concerns. Referrals: Marcos Sol SENIOR MANUFACTURING ENGINEER [Primary Care Provider] - 2 days
== END 2024-04-17 05:50 | disposition home or self-care (01) ==
PROVIDERS: Student in an Organized Health Care Education/Training Program; Emergency Provider Physician Assistant; PCP Nurse Practitioner Family
DX: R06.09 Other forms of dyspnea (principal); J40 Bronchitis, not specified as acute or chronic; E11.65 Type 2 diabetes mellitus with hyperglycemia; I10 Essential (primary) hypertension; Z90.5 Acquired absence of kidney; Z79.84 Long term (current) use of oral hypoglycemic drugs; Z79.4 Long term (current) use of insulin
CPT/HCPCS: 00123; 80053; 82805; 87637; 93005; 94640; 96360; 96361; 99285; 71046; 83735; 83880; 84443; 84484; 85025; 85379; 93010; 99284; J1815; J7512; J7613; J7620

== ENCOUNTER 2024-05-17 01:40 | Outpatient (CLI) | payer BC, SELFPAY ==
--- NOTE | 2024-05-17 06:45 | DI.US_ITS ---
Exam(s) US SOFT TISSUE HEAD OR NECK EXAM: US SOFT TISSUE HEAD OR NECK CLINICAL HISTORY: swelling left side of face/neck,r22.1,[id number]. TECHNIQUE: Ultrasound was performed using standard protocol. COMPARISON: No exams were available for comparison FINDINGS: Sonographic assessment utilizing grayscale and color Doppler imaging was performed and targeted to th e area of clinical concern. There are small benign-appearing lymph nodes seen in the left neck. The largest measures 6 mm. Note is made of a 2.4 x 2.5 x 1.5 cm left thyroid nodule. This is incompletely imaged on the current exa mination. IMPRESSION: 1. No suspicious soft tissue mass. 2. Benign-appearing small lymph nodes in the left neck. 3. 2.4 x 2.5 x 1.5 cm complex thyroid nodule. Thyroid ultrasound should be considered for further ev aluation. DATA REPOSITORY:
--- NOTE | 2024-05-17 07:00 | DI.US_ITS ---
APPROVED REPORT EXAM: Comprehensive 2D, Doppler, and color-flow Echocardiogram Patient Location: Out-Patient Tip Tester: Aylin Ferro RDCS (AE) Indications: EKG shows probable atrial enlargement, SOB on exertion Other Information Study Quality: Adequate Conclusion Normal left ventricular wall thickness and chamber size. Ejection fraction biplane is measured at 42 % but visually appears 50%. There are wall motion abnormalities of the apex and septum Normal right ventricular size and function Both atria are normal in size There are no structural or hemodynamically significant valvular abnormalities Wall motion Left Ventricle The left ventricle is normal size. Left ventricular systolic function id mild ly decreased. There is normal left ventricular wall thickness. Regional wall motion abnormalities are noted. There is no ve ntricular septal defect visualized. LVEF is 42%. Visually appears 50% Right Ventricle The right ventricle is normal size. The right ventricular systolic function is normal. Atria The left atrium size is normal. The right atrium size is normal. The interatrial septum is intact wit h no evidence for an atrial septal defect. Aortic Valve The aortic valve is normal in structure. Aortic valve is trileaflet. There is no aortic valvular sten osis. No aortic regurgitation is present. Mitral Valve The mitral valve is normal in structure. No evidence of mitral valve stenosis. Trace mitral regurgita tion. Tricuspid Valve The tricuspid valve is normal in structure. There is no tricuspid valve stenosis. Trace tricuspid reg urgitation. Unable to assess PA pressure. Pulmonic Valve The pulmonary valve is normal in structure. There is no pulmonic valvular stenosis. There is no pulmo codi valvular regurgitation. Great Vessels The aortic root is normal in size. The ascending aorta is normal in size. Aortic arch is normal in ca liber. IVC is normal in size and collapses >50% with inspiration. Pericardium There is no pericardial effusion. 2D Dimensions IVSD d PLAX 0.92 cm F: 0.6-1.0 Ao Root d 2.85 cm F: 2.7 - 3.3 LVPW d PLAX 0.90 cm F: 0.6 - 1.0 Ao Asc Diam d 2.94 cm F: 2.3 - 3.1 LVID d PLAX 4.30 cm F: 3.8 - 5.2 LVDs 3.50 cm F: 2.2 - 3.5 LV EF Teichholz 39.5 % FS 19.03 % LV EDV (Teich) 81.8 mL LV ESV (Teich) 49.4 mL M-Mode TAPSE 1.76 cm (M/F) >1.7 Auto EF LV EDV A4C 107.8 mL LV EDV A2C 98.5 mL LV EDV BP 101.7 mL LV ESV A4C 60.9 mL LV ESV A2C 59.0 mL LV ESV BP 59.7 mL LVEF(%) A4C 43.5 % LVEF(%) A2C 40.2 % LVEF(%) BP 41.3 % LV SV A4C 46.9 ml LV SV A2C 39.6 ml LV SV BP 42.0 ml LV CO A4C 4.6 L/min LV CO A2C 3.7 L/min LV CO BP 4.1 L/min HR A4C 97.04 BPM HR A2C 93.01 BPM LV EDV Index (BP) LA Volume LA Length A4C 5.0 cm LA Length A2C 4.3 cm LA Area A4C s 16.22 cm2 LA Area A2C s 13.03 cm2 LA Vol A4C A-L 45.06 mL LA Vol A2C A-L 33.25 mL LA Vol Biplane A-L 41.4 mL LA Vol/BSA A4C A-L LA Vol/BSA A2C A-L LA Vol/BSA BP A-L 22.3 mL/m2 LA Vol A4C MOD 41.4 mL LA Vol A2C MOD 32.2 mL LA Vol BP MOD 38.9 mL RA Volume RA Area A4C 8.5 cm2 RA ESV A4C (A-L) 17.0mL RA Vol/BSA A4C A-L RA Length A4C 3.6 cm RA ESV A4C (MOD) 16.6mL Aortic Valve AoV Vmax 1.27 m/s LVOT Vmax 0.97 m/s AoV Peak Grad 6.5 mmHg LVOT Peak Grad 3.7 mmHg AoV Area (Vmax) 2.38 cm2 LVOT VTI 0.192 m AoV VTI 0.270 m LVOT Mean Grad 1.7 mmHg AoV Mean Aaron. 0.96 m/s LVOT SV 60.21 mL AoV Mean Grad 4.1 mmHg LVOT Diam s 2.00 cm AoV Area (VTI) 2.23 cm2 AV Regurg Peak Gr. 6.49 mmHg Velocity Ratio 0.76 Mitral Valve MV Vmax TIPS 1.00 m/s MV Mean Grad 2.0 (<2mmHg) MV VTI 0.210 m Pulmonary Valve PV Vmax 0.93 (0.5-1.5 m/s) RVOT Vmax 0.82 m/s PV Peak Grad 3.5 mmHg RVOT Peak Gr. 2.7 mmHg PV Mean Aaron 0.67 m/s RVOT VTI 0.158 m PV Mean Grad 2.0 mmHg RVOT Mean Gr. 1.8 mmHg Tricuspid Valve RA Pressure 3.00 mmHg TV S' 0.12 m/s
== END 2024-05-17 02:00 ==
PROVIDERS: PCP Nurse Practitioner Family; Visit Provider Nurse Practitioner Family
DX: R22.1 Localized swelling, mass and lump, neck (principal); R13.10 Dysphagia, unspecified; R06.02 Shortness of breath
CPT/HCPCS: 76536; 93306

== ENCOUNTER 2024-06-07 01:20 | Outpatient (CLI) | payer BC, SELFPAY ==
--- NOTE | 2024-06-07 07:00 | DI.US_ITS ---
Exam(s) US NEEDLE LOCAL OTHER WO RAD EXAM: left-side thyroid nodule,ultraosound guided bx,e04.1 COMPARISON: No exams were available for comparison TECHNIQUE: Ultrasound performed using standard protocol. FINDINGS: Sonography was provided for Dr. Freitas during the performance of a left thyroid nodule biopsy. Pletracy se refer to the procedure report for complete details. DATA REPOSITORY:
--- NOTE | 2024-06-07 12:30 | PAPNONF_PTH ---
PATIENT: Markus Castle LOC: [facility] U#:[id number] AGE/SX: 54/F ROOM: RE06/07/[address]: Terrie Webb : 1970 BED: DIS: 06/07/2024 SPEC #: [id number] RECD: 06/07/24 13:02 STATUS: RICA HUANG #: [id number] TATIANNA: 06/07/24 12:[address]: Terrie Webb DEPT[facility] Cytology RECD BY: Guillermina Davis ENTERED: 06/07/24 13:03 SP TYPE: ANGELO FELICIANO DR: Marcos Isidro DNP Tissues: 1 - BODY FLUID CYTO-FINE NEEDLE ASPIRATE-[facility] Procedures: BODY FLUID CYTO-FINE NEEDLE ASPIRATE-[facility] Comments: [id number] (PATH FNA CONSULT) (REFRIGERATED)
--- NOTE | 2024-06-07 13:05 | W.PROCNOTE ---
Date of service: 06/07/24 Time of Service: 13:05 Procedure Note Date of procedure: 06/07/24 Procedure: Ultrasound-guided FNA, left thyroid nodule, pathology present Procedure Diagnosis: Left thyroid nodule meeting criteria for biopsy Procedure Indications: The patient has a left-sided thyroid nodule meeting criteria for biopsy. Options were explained regarding further management. She elected undergo the above procedure. Risks and benefits as well as the procedure were discussed at length. Written consent was obtained. The below was then performed. Procedure Description: The patient was positioned in the supine position with her neck slightly extended. Ultrasound was used to localize the thyroid nodule and the patient was prepped and draped in appropriate fashion. 1% lidocaine with 1/100,000 epinephrine was injected in the skin and subcutaneous tissues overlying the nodule along its medial aspect. Using ultrasound guidance, a 25-gauge needle was then passed into the thyroid nodule and used to perform FNA. 3 passes were necessary to achieve adequate cellularity. Following this, 2 additional passes were made for potential Afirma testing. Bleeding was minimal and self-limited. The patient tolerated this procedure well. A sterile dressing was applied and the patient was allowed to sit, stand, and then ambulate. Her vital signs remained stable. Aftercare will include removing the dressing tonight and not replacing it. She will call with any signs of infection or any concerns. She may use ibuprofen or Tylenol for any discomfort. She will call if she does not hear from us with regard to pathology results within 1 week. She had no further questions. She is comfortable with this plan.
== END 2024-06-07 01:40 ==
LOC: DI 01:20
PROVIDERS: PCP Nurse Practitioner Family; Visit Provider Registered Nurse Maternal Newborn
DX: E04.1 Nontoxic single thyroid nodule (principal)
CPT/HCPCS: 10005; 76942; 88104

== ENCOUNTER 2024-07-15 07:14 | Day surgery (SDC) | payer BC, SELFPAY ==
[2024-07-15 07:23] VITALS: BP 148/83; PULSE 109; RESP 16; TEMP 35.9; O2SAT 98
--- NOTE | 2024-07-15 07:38 | W.ANESPRE ---
General Info Date of Service Date Performed: 07/15/24 Height: 5 ft 3 in Weight: 83.4 kg Body Mass Index (BMI): 32.5 Surgical Procedure: Operation Date: 07/15/24 08:20 Proposed Procedure Side Surgeon p Colonoscopy/Gastroscopy Melia Bishop, Meds Allergies and Home Medications Allergies Allergy/AdvReac Type Severity Reaction Status Date / Time Iodinated Contrast Media Allergy Severe vomiting Verified 07/15/24 07:29 blood azithromycin Allergy Unknown unknown Verified 07/15/24 07:29 tramadol HCl (From Ultra) Allergy Unknown see Verified 07/15/24 07:29 comments Home Medication ?Medication ?Instructions ?Recorded berberine-herbal comb no.18 capsule 1 cap PO DAILY 08/19/23 albuterol sulfate 90 mcg/actuation 2 puff inhalation Q6H PRN 01/20/24 aerosol inhaler (Proventil HFA) shortness of breath or wheezing #8.5 grams fluticasone propionate 50 2 spray intranasal BID PRN 01/20/24 mcg/actuation nasal allergies #15.8 mL spray,suspension (Allergy Relief (fluticasone)) chlorthalidone 25 mg tablet 25 mg PO DAILY #90 tabs 04/26/24 amlodipine 5 mg tablet 5 mg PO DAILY #90 tabs 05/25/24 losartan 100 mg tablet 100 mg PO DAILY #90 tabs 05/25/24 metformin 1,000 mg tablet 1,000 mg PO BID@0800,1700 #180 tabs 05/25/24 glyburide 5 mg tablet 5 mg PO DAILY #90 tabs 06/15/24 semaglutide 2 mg/dose (8 mg/3 mL) 2 mg (0.75 mL) subcut QWEEK #3 mL 07/04/24 subcutaneous pen injector insulin glargine 100 unit/mL (3 25 unit (0.25 mL) subcut DAILY #15 07/12/24 mL) subcutaneous pen (Lantus mL Solostar U-100 Insulin) pantoprazole 40 mg tablet,delayed 40 mg PO DAILY #90 tabs 07/13/24 release Current Visit Medications: Current Medications Generic Name Dose Route Start Last Admin Trade Name Freq PRN Reason Stop Dose Admin Hyoscyamine Sulfate 0.125 mg 07/15/24 01:23 Hyoscyamine 0.125 Mg Sl/Oral/Chew SL 08/14/24 01:22 DIRECTED PRN Ringer's Solution 500 mls @ 80 mls/hr 07/15/24 06:00 IV 08/13/24 23:59 INFUSION MARGUERITE IV Miscellaneous Supplies 1 each 07/15/24 06:00 Iv Access IV 08/13/24 23:59 DIRECTED MARGUERITE Ondansetron HCl 4 mg 07/15/24 01:23 Ondansetron 4 Mg/2 Ml Vial IVP 08/14/24 01:22 Q4H PRN PRN Nausea / Vomiting Sodium Chloride 0 ml 07/15/24 06:00 Normal Saline Flush 10 Ml Syr IV 08/13/24 23:59 PRN PRN Sodium Chloride 0 ml 07/15/24 06:00 Normal Saline 10 Ml Vial IJ 08/13/24 23:59 DIRECTED PRN Sterile Water 0 ml 07/15/24 06:00 Water,Injection,Sterile 10 Ml Vial IJ 08/13/24 23:59 DIRECTED PRN PFSH Active Problems Active Problems: Problem Status Onset Code Thyroid nodule Acute E04.1 Hypertriglyceridemia Acute E78.1 DM (diabetes mellitus), type 2, uncontrolled Acute E11.65 Single kidney Acute Z90.5 HTN (hypertension) Chronic I10 Medical History Medical History (Updated 07/15/24 @ 08:19 by Melia Bishop DO) Mass of left side of neck Shortness of breath on exertion Dysphagia Left shoulder pain Chest pain Per pt. states it was dehydration Left otitis media Cough Rhinosinusitis Elevated WBC count Incisional hernia Surgical History Surgical History History of kidney removal left- cancerous cyst. no chemo History of cholecystectomy Tobacco Smoking/Tobacco Use Status: Never Passive smoking exposure: Yes Second hand exposure: Yes Alcohol Alcohol Intake: never Substance Use Substance use: Never Substance use type: does not use Vital Signs and Lab Results Vital Signs Most Recent Vital Signs in EMR: Most Recent Vital Signs Temp Pulse Resp BP Pulse Ox 35.9 C L 109 H 16 148/83 H 98 07/15/24 07:23 07/15/24 07:23 07/15/24 07:23 07/15/24 07:23 07/15/24 07:23 Point of Care Results Point of Care Results: Finger Stick Blood Glucose 224 07/15/24 07:37 Lab Results Blood Type / Crossmatch: No Data to Display Complete Blood Count: No Data to Display Complete Metabolic Panel: No Data to Display Liver Function Panel: No Data to Display Coagulation Panel: No Data to Display Cardiac Panel: No Data to Display Arterial Blood Gas: No Data to Display Venous Blood Gas: No Data to Display Pancreas Panel: No Data to Display Thyroid Panel: No Data to Display Infectious Disease: No Data to Display Blood Cultures: No Data to Display Toxicology Panel: No Data to Display Panel: No Data to Display Imaging and Studies Imaging and Studies Study information below may be from another EMR and interpreted by another provider. Please see original notes in EMR for more complete details. EKG Summary: EKG PATIENT NAME: Markus Castle UNIT #: [id number] ORDERING PROVIDER: Trice Rojas M.D. PRIMARY CARE PROVIDER: Marcos Isidro DNP DATE/TIME OF SERVICE: 04/16/242110 : 1970 PERFORMING LOCATION: ER APPROVED REPORT Exam: Resting ECG Reason for Exam: sob Patient Location: E HR:112 bpm ECG Measurements Heart Rate 112 AXIS [place] 158 P 54 QRSd 93 QRS 59 QT 333 T31 QTc 455 Conclusion Sinus tachycardia...rate> 99 Probable left atrial enlargement...P >50mS, <-0.10mV V1 Anterior infarct, old...Q >40mS, abnormal ST-T, V2-V5 appropriate intervals no ST segment or T wave abnormalitites to suggest occlusive AK <Electronically signed by Trice Rojas M.D. in OV> E-Sign Date: 04/16/24 E-Sign Time: 2200 ADDENDUM APPROVED REPORT Exam: Resting ECG Reason for Exam: sob Patient Location: E HR:112 bpm ECG Measurements Heart Rate 112 AXIS OH 158 P 54 QRSd 93 QRS 59 QT 333 T31 QTc 455 Conclusion Sinus tachycardia...rate> 99 Probable left atrial enlargement...P >50mS, <-0.10mV V1 Anterior infarct, old...Q >40mS, abnormal ST-T, V2-V5 appropriate intervals no ST segment or T wave abnormalitites to suggest occlusive AK I have reviewed and I agree with the emergency room physician's ECG interpretation. Electronically signed by: <Electronically signed by Chapo El M.D. in OV> 04/18/24 0806 Cosigned by: Stress Test Summary: Patient Name: Markus Castle Unit #: [id number] Loc: Ordering Provider: Donald Sarabia M.D. Status: [facility] Primary Care Provider: Marcos Sol NP Date of Exam: 06/26/22 Sex: F Admission Date: 06/26/22 : 1970 Age: 52 APPROVED REPORT Exam: Exercise Treadmill Patient Location: Out-Patient Room/Bed: Stress Nurse: Elissa Goncalves RN Ordering Provider:DONALD SARABIA, Contact Number: [phone] BMI: 34.00 Baseline Rhythm: Sinus Rhythm Indications: Chest pain Medical History Medical History: DM2. HTN. Single Kidney. Hypertriglyceridemia. Cardiac Medications: Amlodipine. Losartan. Metformin. Semaglutide. Glargine Insulin. Allergies: Iodinated Contrast. Azithromycin. Tramadol. Cardiac Risk Factors: Family history. HTN. DM2. HTN. Hypertriglceridemia. Previous Cardiac Procedures: None. Pretest Chest Pain Characteristics: No chest pain Exercise History: Sedentary Physical Disabilities: None. Lung Sounds: Clear to auscultation Heart Sounds: Regular Stress Test Details Test: Exercise stress testing was performed using a Michele protocol. Nuclear Acquisition: Rest Tc-99m/Stress Tc-99m 1 day Rest Isotope: Tc-99m Sestamibi. Dose: 10.7 Date: 06/26/2022 Injection Time: 0850 Stress Isotope: Tc-99m Sestamibi. Dose: 31 Date: 06/26/2022 Injection Time: 1010 HR Resting HR Supine: 80 bpmMax Heart Rate (APMHR): 168.033548 bpm Resting HR Standin bpmTarget HR (85% APMHR): 142.785469 bpm Max HR Achieved: 158 bpm % of APMHR: 94.05 Recovery HR: 103 bpm HR response to stress: Normal HR response to stress BP Resting BP Supine: 152/80 mmHg Resting BP Standin/84 mmHg Max BP: 194/60 mmHg Recovery BP: 150/84 mmHg BP response to stress: Normal blood pressure response to stress. ECG Resting ECG: Sinus Rhythm Ectopy: None Stress ECG: Sinus Tachycardia ST Change: No significant ST segment changes noted Arrhythmia: None Recovery ECG: Sinus Rhythm Recovery ST Change: No significant ST segment changes noted Recovery Arrhythmia: None Clinical Reason for Termination: Fatigue Stress Symptoms: General Fatigue Exercise duration: 8 min2 sec Highest Stage Reached: Stage 3: 3.4 mph at 14% grade. Exercise capacity: 10 METs Scale: Sedentary Angina Score: None Rate Pressure Product: [id number] Stress ECG Conclusion 1. Resting electrocardiogram was within normal limits 2. Patient exercised on the Michele protocol and completed a workload of 10 METS 3. Normal heart rate and blood pressure response to exercise. The patient achieved 92% of predicted heart rate for age 4. Electrocardiographic portion of the test was nondiagnostic due to excessive artifact 5. See MPI report Stress Test Summary STAGETime (mins)Speed (mph)Grade (%)[id number] Mqebko45434/80 Qteisjox99793/84 131.644877520/744.5 262.680052369/787 1 min [id number]/6098 3 min [id number]/70 6 min impvvvdr260266/84 MPI Conclusion Myocardial perfusion is normal without evidence of ischemia or prior infarction EF 57%, normal wall motion Radiologist Interpretation Radiologist Interpretation by: Sarabjit Julio MD Interpretation Date/Time: 06/26/2022 16:54:29 Ordered By: Donald Sarabia M.D. CC: REILLY NGUYEN,CHAPO BLANDON Dictated By: Chapo El M.D. 06/26/22 1042 <Electronically signed by Chapo El M.D. in OV> 06/27/22 0817 Transcribed By: Chapo El MD This is privileged, confidential information intended only for the provider named. Any use or distribution by any person other than this provider is strictly prohibited. If you receive this report in error, please notify us immediately at [phone] and return the original report to us at the address above. Thank-you. Echocardiogram Summary: Patient Name: Markus Castle Unit #: [id number] Loc: DI Ordering Provider: Marcos Sol IT SYSTEMS ADMINISTRATOR Status: REG CLI Primary Care Provider: Marcos Sol IT SYSTEMS ADMINISTRATOR Date of Exam: 05/17/24 Sex: F Admission Date: 05/17/24 : 1970 Age: 54 APPROVED REPORT EXAM: Comprehensive 2D, Doppler, and color-flow Echocardiogram Patient Location: Out-Patient Rolling Down Machine Operator: Aylin Ferro RDCS (AE) Indications: EKG shows probable atrial enlargement, SOB on exertion Other Information Study Quality: Adequate Conclusion Normal left ventricular wall thickness and chamber size. Ejection fraction biplane is measured at 42% but visually appears 50%. There are wall motion abnormalities of the apex and septum Normal right ventricular size and function Both atria are normal in size There are no structural or hemodynamically significant valvular abnormalities Wall motion Left Ventricle The left ventricle is normal size. Left ventricular systolic function id mild ly decreased. There is normal left ventricular wall thickness. Regional wall motion abnormalities are noted. There is no ventricular septal defect visualized. LVEF is 42%. Visually appears 50% Right Ventricle The right ventricle is normal size. The right ventricular systolic function is normal. Atria The left atrium size is normal. The right atrium size is normal. The interatrial septum is intact with no evidence for an atrial septal defect. Aortic Valve The aortic valve is normal in structure. Aortic valve is trileaflet. There is no aortic valvular stenosis. No aortic regurgitation is present. Mitral Valve The mitral valve is normal in structure. No evidence of mitral valve stenosis. Trace mitral regurgitation. Tricuspid Valve The tricuspid valve is normal in structure. There is no tricuspid valve stenosis. Trace tricuspid regurgitation. Unable to assess PA pressure. Pulmonic Valve The pulmonary valve is normal in structure. There is no pulmonic valvular stenosis. There is no pulmonic valvular regurgitation. Great Vessels The aortic root is normal in size. The ascending aorta is normal in size. Aortic arch is normal in caliber. IVC is normal in size and collapses >50% with inspiration. Pericardium There is no pericardial effusion. 2D Dimensions IVSD d PLAX 0.92 cm F: 0.6-1.0Ao Root d 2.85 cm F: 2.7 - 3.3 LVPW d PLAX 0.90 cm F: 0.6 - 1.0Ao Asc Diam d 2.94 cm F: 2.3 - 3.1 LVID d PLAX 4.30 cm F: 3.8 - 5.2 LVDs 3.50 cm F: 2.2 - 3.5 LV EF Teichholz 39.5 % FS19.03 % LV EDV (Teich)81.8 mL LV ESV (Teich)49.4 mL M-Mode TAPSE 1.76 cm (M/F) >1.7 Auto EF LV EDV A3Q638.8 mLLV EDV A2C98.5 mLLV EDV BP101.7 mL LV ESV A4C60.9 mLLV ESV A2C59.0 mLLV ESV BP59.7 mL LVEF(%) A4C43.5 %LVEF(%) A2C40.2 %LVEF(%) BP41.3 % LV SV A4C46.9 mlLV SV A2C39.6 mlLV SV BP42.0 ml LV CO A4C4.6 L/minLV CO A2C3.7 L/minLV CO BP4.1 L/min HR A4C97.04 BPMHR A2C93.01 BPMLV EDV Index (BP) LA Volume LA Length A4C5.0 cmLA Length A2C4.3 cm LA Area A4C s 16.22 cm2LA Area A2C s 13.03 cm2 LA Vol A4C A-L45.06 mLLA Vol A2C A-L33.25 mLLA Vol Biplane A-L41.4 mL LA Vol/BSA A4C A-LLA Vol/BSA A2C A-LLA Vol/BSA BP A-L 22.3 mL/m2 LA Vol A4C MOD41.4 mLLA Vol A2C MOD32.2 mLLA Vol BP MOD38.9 mL RA Volume RA Area A4C8.5 cm2RA ESV A4C (A-L)17.0mLRA Vol/BSA A4C A-L RA Length A4C3.6 cmRA ESV A4C (MOD)16.6mL Aortic Valve AoV Vmax1.27 m/sLVOT Vmax 0.97 m/s AoV Peak Grad6.5 mmHgLVOT Peak Grad 3.7 mmHg AoV Area (Vmax)2.38 dk9UCIB VTI0.192 m AoV VTI0.270 mLVOT Mean Grad 1.7 mmHg AoV Mean Aaron.0.96 m/sLVOT SV 60.21 mL AoV Mean Grad4.1 mmHgLVOT Diam s 2.00 cm AoV Area (VTI)2.23 cm2AV Regurg Peak Gr.6.49 mmHg Velocity Ratio 0.76 Mitral Valve MV Vmax TIPS 1.00 m/s MV Mean Grad 2.0 (<2mmHg) MV VTI 0.210 m Pulmonary Valve PV Vmax 0.93 (0.5-1.5 m/s)RVOT Vmax 0.82 m/s PV Peak Grad 3.5 mmHgRVOT Peak Gr.2.7 mmHg PV Mean Vel0.67 m/sRVOT VTI0.158 m PV Mean Grad 2.0 mmHgRVOT Mean Gr.1.8 mmHg Tricuspid Valve RA Pressure 3.00 mmHg TV S'0.12 m/s Ordered By: Marcos Sol NP CC: Dictated By: Chapo El M.D. 05/17/24 6541 <Electronically signed by Chapo El M.D. in OV> 05/17/24 1417 Transcribed By: Chapo El MD 05/17/24 1877 This is privileged, confidential information intended only for the provider named. Any use or distribution by any person other than this provider is strictly prohibited. If you receive this report in error, please notify us immediately at [phone] and return the original report to us at the address above. Thank-you. Anesthesia Assessment and Plan Anesthesia History Personal History: No History of Anesthesia Complications Family History: No Family History of Anesthesia Complications Exercise Tolerance Exercise Tolerance: Metabolic Equivalents>4 Pertinent Negatives Pertinent Negatives: No Major Cardiovascular Symptoms or Complaints and No Major Pulmonary Symptoms or Complaints Cardiac & Pulmonary Exam Cardiac Exam: Normal S1/S2 Heart Sounds Pulmonary Exam: Clear Bilateral Breath Sounds Implantable Cardiac Device Does patient have a Pacemaker or an ICD?: No Airway Exam Known Difficult Airway: No Mallampati Class: 3 Mouth Opening: Normal (> 3cm) Thyromental Distance: Greater than 3 cm Neck Range of Motion: Full ROM Neck Circumference: Normal Teeth Condition: Normal Dentition ASA Classification ASA Score: ASA 3 Emergency Case?: No NPO Status NPO Status: NPO Clears >2 hours, Solids >8 hours Status Status: Not Relevant due to Medical History Anesthesia Plan Resuscitation Status: Full Code Anesthesia Technique: General Anesthesia Airway Planned: Natural Airway Monitors Used: Standard Monitors
[2024-07-15] MEDS: Normal Saline Flush 10 ML SYR IV (07:55)
--- NOTE | 2024-07-15 08:13 | W.PM.HP.N ---
Date of service: 07/15/24 Time of Service: 08:27 Assessment and Plan Assessment and plan (1) Chronic GERD: Status: Acute Assessment and plan: Informed consent is obtained for the procedural (explained in simple layman's terms that the pt. and/or family could understand) explaining risks vs benefits and alternatives to the procedure and consequences if we do not do the procedure and need/rational for the procedure. Risks include but are not limited to: bleeding, infection, perforation of esophagus, stomach, colon, small intestines, bronchus or trachea, or PTX. This would necessitate emergency surgery to repair the damage w/ possible ostomy; and other associated complications w/ the required surgery. Also complications of anesthesia including aspiration, VA/CVA/. (2) Chronic diarrhea: Status: Acute Assessment and plan: Plan: Colonoscopy w/ general & natural airway. The?patient will be scheduled by my office. Informed consent is obtained for the procedural (explained in simple layman's terms that?the pt and/or family could understand) explaining risks vs benefits and alternatives to the procedure and consequences if we do not do the procedure and need/rational for the procedure. Risks include but are not limited to: bleeding, infection, perforation of colon.? This would necessitate emergency surgery to repair the damage w/ possible ostomy; and other associated complications w/ the required surgery. ? Also complications of anesthesia including aspiration, VA/CVA/, inability to complete the procedure. I discussed with the?patient would they could expect during the procedure, post procedure and recovery time and risks.? History of Present Illness Narrative: Patient is here today for EGD& colonoscopy for reflux & diarrhea/screening.??? They completed a bowel prep with just a clear yellow residual effluent.? They not having any chest pain or shortness of breath, currently.? They are not experiencing any fever or chills.? They deny any productive cough or upper respiratory tract infection signs or symptoms.? They are not having abdominal pain, or nausea and vomiting.? They have not had any changes in medications, past medical history or past surgical history since previously being seen in the office. They have not had any accidents or have been in the ER since the clinic pre-operative evaluation. ??I reviewed the procedure with the patient today, including risks and benefits of the procedure, and what they could expect at home for recovery.? All questions are answered to the patient?s satisfaction today, and they are stable to proceed with the proposed procedure. Clinic 05/30 Dysphagia: 2. Gastroesophageal Reflux Disease (GERD). Her reflux symptoms are currently well controlled with Protonix. She experiences occasional difficulty swallowing and burping, which may be related to GERD. An EGD is planned to further evaluate her symptoms and take biopsies if necessary. Continue with lifestyle modifications: no alcohol, tobacco products, Aspirin or NSAID's (ibuprofen, Motrin, Naprosyn, aleve, etc), soda pop/any carbonated beverages, caffeine (including tea & chocolate), and acidic foods, (tomatoes, citrus, onions, peppermints) spicy or fried/fatty foods. Do not lie down for 30 minutes after eating, and do not eat 2 hours prior to bedtime. Avoid wearing tight fitting clothing/ belts She is currently on Protonix daily. We discussed the importance of lifestyle modifications and identifying her triggers, so she can learn to avoid these or be paired. 3. Constipation and Diarrhea. She experiences alternating constipation and diarrhea. There is no blood in her stool. A colonoscopy is planned to screen for polyps and other potential causes of her symptoms. We discussed the importance of fiber and how it can help with both constipation and diarrhea. We discussed how to use this medication and that it does need to be taken every day. She should start with a teaspoon daily for 2 weeks and work up to 2 teaspoons daily. She can use MiraLAX as a rescue agent at bedtime if no bowel movement during the day. FNA on the thyroid nodule was negative Review of Systems All systems reviewed & are unremarkable except as noted in HPI and below PFSH All Active Problems (Updated 07/15/24 @ 08:19 by Melia Bishop DO) Chronic diarrhea (Acute) resolved with gluten avoidance Chronic GERD (Acute) Thyroid nodule (Acute) benign follicular nodule Hypertriglyceridemia (Acute) DM (diabetes mellitus), type 2, uncontrolled (Acute) Single kidney (Acute) HTN (hypertension) (Chronic) Medical History (Updated 07/15/24 @ 08:19 by Melia Bishop DO) Mass of left side of neck Shortness of breath on exertion Dysphagia Left shoulder pain Chest pain Per pt. states it was dehydration Left otitis media Cough Rhinosinusitis Elevated WBC count Incisional hernia Surgical History History of kidney removal left- cancerous cyst. no chemo History of cholecystectomy Family History Mother No problems noted. Father , age 61 No problems noted. Brother No problems noted. Brother No problems noted. Son No problems noted. Son No problems noted. Social History (Updated 01/28/24 @ 13:54 by Carmella Caruso) Smoking/Tobacco Use Status: Never Second Hand Exposure: Yes Smoking risk assessment performed?: Yes Alcohol Intake: never Drug use: Never Substance use type: does not use Caregiver/Support person: No Household members: spouse and other Details: Mother Housing: house Communication Needs: None Pets and animals: No Sexually active: Yes Do you think of yourself as: straight/heterosexual Current gender identity: female What is your relationship status?: How often do you talk on the phone with friends or family?: three or more times per week How often do you get together with friends or relatives?: once per week How often do you attend muslim or judaism services?: 1-3 times per year Do you belong to any clubs or organized social groups?: no Panel score (0-1 are the most socially isolated patients): 2 What type of physical activity do you participate in: walking Frequency: 1-2 times per week Sudha/Episcopal: None Special sudha needs: No Seatbelt use: always Helmet use: Yes Helmet use: always Drive intox or ride w/intox [employer] company flatbed driver: No Do you feel safe at home: Yes Do you feel safe in your relationship?: Yes Meds Allergies and Home Medications Allergies Allergy/AdvReac Type Severity Reaction Status Date / Time Iodinated Contrast Media Allergy Severe vomiting Verified 07/15/24 07:29 blood azithromycin Allergy Unknown unknown Verified 07/15/24 07:29 tramadol HCl (From Ultram) Allergy Unknown see Verified 07/15/24 07:29 comments Home Medications ?Medication ?Instructions ?Recorded ?Confirmed ?Type berberine-herbal comb no.18 capsule 1 cap PO DAILY 08/19/23 07/15/24 History albuterol sulfate 90 mcg/actuation 2 puff inhalation Q6H PRN 01/20/24 07/15/24 Rx aerosol inhaler (Proventil HFA) shortness of breath or wheezing #8.5 grams fluticasone propionate 50 2 spray intranasal BID PRN 01/20/24 07/15/24 Rx mcg/actuation nasal allergies #15.8 mL spray,suspension (Allergy Relief (fluticasone)) chlorthalidone 25 mg tablet 25 mg PO DAILY #90 tabs 04/26/24 07/15/24 Rx amlodipine 5 mg tablet 5 mg PO DAILY #90 tabs 05/25/24 07/15/24 Rx losartan 100 mg tablet 100 mg PO DAILY #90 tabs 05/25/24 07/15/24 Rx metformin 1,000 mg tablet 1,000 mg PO BID@0800,1700 #180 tabs 05/25/24 07/15/24 Rx glyburide 5 mg tablet 5 mg PO DAILY #90 tabs 06/15/24 07/15/24 Rx semaglutide 2 mg/dose (8 mg/3 mL) 2 mg (0.75 mL) subcut QWEEK #3 mL 07/04/24 07/12/24 Rx subcutaneous pen injector insulin glargine 100 unit/mL (3 25 unit (0.25 mL) subcut DAILY #15 07/12/24 07/15/24 Rx mL) subcutaneous pen (Lantus mL Solostar U-100 Insulin) pantoprazole 40 mg tablet,delayed 40 mg PO DAILY #90 tabs 07/13/24 07/15/24 Rx release Exam Narrative Exam Narrative: PHYSICAL EXAM GENERAL APPEARANCE: Alert, healthy appearance, oriented, x 3,? in no acute distress HYDRATION: Well hydrated HEAD, EYES, EARS, NECK, THROAT: Head is normocephalic, pupils equal, round, reactive to light and accommodation, ocular movement intact, sclera clear and no jaundice. ?Dentition intact. LUNGS: normal respiration/normal chest excursion. ?Clear to auscultation bilaterally. ?No wheeze. ?HEART: Regular rate and rhythm. no murmurs ABDOMEN: soft and non-tender to palpation.? N Results Last Vital Signs Temp 35.9 C L 07/15/24 07:23 Pulse 109 H 07/15/24 07:23 Resp 16 07/15/24 07:23 BP 148/83 H 07/15/24 07:23 Pulse Ox 98 07/15/24 07:23 Time Spent Time spent with Patient: <40 minutes Time was spent: preparing to see the patient(eg.review tests), obtaining and/or reviewing separately otained hiistory, ordering medications,tests, procedures, referring, communicating with other health home care music therapist, indepentently interpreting results, counseling the patient, care coordination and other
--- NOTE | 2024-07-15 08:27 | PDOC.DSDIS_ITS ---
Date of service: 07/15/24 Time of Service: 08:27 Discharge Plan Disposition Patient Disposition: Home Discharge Details Reason For Visit: Stomach and colon scope Attending Provider: Melia Bishop Primary Care Provider: Marcos Sol Home Meds and New Rx's Prescriptions: New sucralfate [Carafate] 1 gram tablet 1 g PO QACHS Qty: 120 12RF Continued albuterol sulfate [Proventil HFA] 90 mcg/actuation HFA aerosol inhaler 2 puff inhalation Q6H PRN (Reason: shortness of breath or wheezing) Qty: 8.5 0RF fluticasone propionate [Allergy Relief (fluticasone)] 50 mcg/actuation spray,suspension 2 spray intranasal BID PRN (Reason: allergies) Qty: 15.8 4RF Rx Instructions: Administer 2 sprays into each nostril once a day as needed for allergies berberine-herbal comb no.18 Capsule 1 cap PO DAILY chlorthalidone 25 mg tablet 25 mg PO DAILY Qty: 90 3RF amlodipine 5 mg tablet 5 mg PO DAILY Qty: 90 3RF losartan 100 mg tablet 100 mg PO DAILY Qty: 90 3RF metformin 1,000 mg tablet 1,000 mg PO BID@0800,1700 Qty: 180 4RF glyburide 5 mg tablet 5 mg PO DAILY Qty: 90 4RF semaglutide 2 mg/dose (8 mg/3 mL) pen injector 2 mg subcut QWEEK Qty: 3 12RF Rx Instructions: for 4 weeks insulin glargine [Lantus Solostar U-100 Insulin] 100 unit/mL (3 mL) insulin pen 25 unit SC DAILY Qty: 15 4RF pantoprazole 40 mg tablet,delayed release (DR/EC) 40 mg PO DAILY Qty: 90 0RF Discontinued polyethylene glycol 3350 17 gram/dose powder 238 g PO ONCE Qty: 238 0RF Rx Instructions: take per colonoscopy instructions Discharge Instructions Additional Instructions: DSU Colonoscopy Post- Op Instructions Instructions for Everyone who is given Anesthesia: For your safety, please do the following for the next twenty-four (24) hours: *Do Not operate a motor vehicle (car, truck, motorcycle, etc.) *Do Not drink alcoholic beverages or use any recreational drugs for the first 24 hours or while taking pain medications. The medications in your body may have a reaction that can be dangerous. *Do Not make any important decisions or sign any important papers. Findings: Bile reflux gastritis Perez diverticula Colon polyps Follow up: 1. No lifting over 20 pounds or strenuous activity for the first 24 hours after your procedure. After 24 hours there are no restrictions on your activity but you may feel fatigued for a few days. 2. After you arrive home you may have a light meal and return to your normal diet as you can tolerate it without feeling sick to your stomach. 3. You may have a bloated, gaseous feeling in your belly (abdomen) after a colonoscopy. Passing gas and belching will help. Walking or lying down on your left side with your knees flexed may relieve the discomfort. Call the office at [phone] (Office) or [phone] (Hospital) right away if you notice any of the following: a.Vomiting of blood or ?coffee ground stools?. b.Rectal bleeding 1Tbsp, blood clots or continuous bleeding. c.Severe belly (abdominal) pain. d.A hard distended belly (abdomen) and an inability to pass gas. 4. Please don?t expect to have a normal BM (bowel movement) for 2-3 days after your procedure. 5. If there are questions regarding the findings of your procedure, please contact your doctor 6. If you are unable to contact your doctor with a problem, contact the hospital at [phone]. 7. Continue all your regular medications unless directed otherwise. I understand the above instructions and have no questions. Signature of Patient or Adult Escort Name of Responsible Adult Escort Signature of Nurse Date/Time Stand Alone Forms: Anesthesia Discharge Inst., Colonoscopy Post Instructions, Kendrick Nava (DSU) Activity:: See above Diet:: See above Discharge Orders Discharge Orders: Discharge Order (Routine); Ordered 07/15/24 Ordered By: Melia Bishop DS: Diagnosis Discharge Diagnosis (1) Chronic GERD: Status: Acute (2) Chronic diarrhea: Status: Acute Asessment and Plan: The patient is seen and examined after their colonoscopy.? The patient has been able to pass gas.? They are not having abdominal pain.? They have been able to tolerate liquids and a snack.? They do not have any nausea or vomiting.? They are not having any chest pain or shortness of breath.??? They are not having any rectal bleeding. Their vital signs have been stable-see nursing notes. We discussed findings during their colonoscopy, and any biopsies that were done/polyps that were removed. The patient will be sent a letter with any biopsy results, and when to repeat the colonoscopy.-see discharge instructions. Patient was given explicit instructions to follow-up regarding colonoscopy-refer to discharge instructions.? We reviewed resumption of medications. Patient verbalized understanding and discharged in stable and satisfactory condition- See nursing notes. (3) Bile reflux gastritis: Status: Acute (4) Colon polyp: Status: Acute
--- NOTE | 2024-07-15 08:41 | W.COLOREPORT ---
Date of service: 07/15/24 Time of Service: 08:41 Colonoscopy Report Date of procedure: 07/15/24 Pre-op diagnosis general: CRC screening/chronic diarrhea Post-op diagnosis procedure note: other (Perez diverticula and adenomatous polyps) Surgeon: Melia Bishop Anesthesia Type: General:No Airway Estimated blood loss (mL): 1 Pathology: other Complications: None Disposition: same day Prep: Miralax/Dulcolax Retraction Time: 8 Procedure Description: After informed consent was obtained, explaining risks of the procedure, including but not limits to: bleeding, infections, complications of anesthesia, perforations (which may require antibiotics and /or surgery and stay in the hospital), and abdominal pain/cramping. The patient was taken to the procedure room and placed in a left decubitous position. Monitors were applied and a time out was done. The patients name, date of , procedure, allergies to medications and metal in their body was reviewed. The patient was then sedated. Once sedated and comfortable a rectal exam was done. External exam was normal. Internal exam revealed a normal sphincter tone and no palpable masses. The previously lubricated Olympus scope was then introduced (see RN notes for scope number) and retrofelexed. No internal hemorrhoids were identified. The scope was then advanced to the cecum without difficulty. The TI and appendiceal orifice were identified. The scope was then slowly retracted over 8 minutes back into the rectum. Polyps: A flat, .5cm polyps were found at 30 and 20 cm. This was removed with a cold biting forceps. All of the specimen was retrieved. This will be sent to pathology. There is no bleeding noted from the polypectomy site. Diverticula: pt had a large amount of small mouthed diverticula that do carry all the way over to the cecum. There were no signs of active bleeding or infection. The mucosa is pink and healthy w/ a normal vascular pattern. The scope was removed, and the patient was woken up and taken back to Same day surgery in stable condition. The patient tolerated the procedure well and there were no immediate complications. Follow up: The patient should follow up in 7-10 years, path pending, unless they develop changes in bowel habits or other new gastrointestinal complaints. [place] Bowel Prep [place] Bowel Prep Right Colon: 3 Left Colon: 2 Transverse Colon: 3 Total Score: 8
--- NOTE | 2024-07-15 08:42 | W.PM.ENDDOP ---
Date of service: 07/15/24 Time of Service: 08:42 Endoscopy Report DATE OF PROCEDURE: 07/15/24 PRE-OP DIAGNOSIS: reflux POST-OP DIAGNOSIS: other (Bile reflux gastritis and a patulous hiatus) SURGEON: Melia Bishop ANESTHESIA TYPE: General:No Airway ESTIMATED BLOOD LOSS: 1 PATHOLOGY: other COMPLICATIONS: None DISPOSITION: same day PROCEDURE DESCRIPTION: Informed consent was obtained from the pt; explaining the benefits and Risks: bleeding, infections, perforations {which could require surgery or antibiotics and prolonged hospital stay}, or ostomy, and complications of anaesthesia, meagan aspiration). The patient was take to the procedure room and placed in a supine position. Monitors were applied and a time out was done. The patients name, date of , procedure type, allergies to medications and metal in their body was reviewed. A bite block was placed and the patient was sedated. Once sedated and comfortable an Olympus gastroscope (see RN notes for scope #) was advanced through the oropharynx which was grossly normal, and passed into the esophagus. The proximal and mid-esophagus were normal. The distal esophagus does not show any: dilation/strictures/varices/erosions or ulcers/bleeding noted. Upon entering the stomach there is a large amount of bile noted. This was suctioned. The scope was advanced into the stomach and through the pylorus into the proximal jejunum. A bx is taken for celiac Dx . The duodenum was noted to be normal. Biopsies were done of the duodenal bulb.. The scope was retracted back into the stomach and biopsies were taken of the antrum. There is a mild diffuse gastritis in the distal third of the stomach. There were no gastropathy/ ulcers/masses noted. The scope was retroflexed. The cardia and fundus were noted to be normal. She does have a patulous hiatus, but there is no herniation. The scope was retracted back into the esophagus and biopsies were done of the GE junction (in all 4 quadrants) and distal esophagus (2cm above the GE junction) to rule out Gutierres's. All specimens are retrieved and no bleeding was noted. The Z line was regular. The GE junction was at 38 cm. The scope was removed and the patient was woken up and taken back to [facility] in stable condition.
[2024-07-15 08:48] VITALS: BMI 32.5
--- NOTE | 2024-07-15 08:54 | BOWEL_PTH ---
PATIENT: Markus Castle LOC: [facility] U#:[id number] AGE/SX: 54/F ROOM: RE07/15/[address]: Melia Bishop : 1970 BED: DIS: 07/15/2024 SPEC #: [id number] RECD: 07/15/24 12:41 STATUS: RICA RETracy #: [id number] TATIANNA: 07/15/24 08:[address]: Melia Bishop DEPT: Surgical Specimen RECD BY: Guillermina Davis ENTERED: 07/15/24 12:43 SP TYPE: Bowel OTHR DR: Marcos Isidro, HELDER Tissues: 1 - BIOPSY BOWEL 2 - BIOPSY BOWEL 3 - STOMACH BIOPSY 4 - STOMACH BIOPSY 5 - ESOPHAGUS BIOPSY 6 - ESOPHAGUS BIOPSY 7 - BIOPSY BOWEL 8 - BIOPSY BOWEL Procedures: GROSS AND MICRO LEVEL 4 IMMUNOPEROXIDASE STAIN Comments: [id number]
[2024-07-15 09:29] VITALS: BP 122/77; PULSE 97; RESP 16; TEMP 36.3; O2SAT 95
--- NOTE | 2024-07-15 09:44 | PDOC.DSDIS_ITS ---
Date of service: 07/15/24 Time of Service: 09:45 Discharge Plan Disposition Patient Disposition: Home Discharge Details Reason For Visit: Stomach and colon scope Attending Provider: Melia Bishop Primary Care Provider: Marcos Sol Home Meds and New Rx's Prescriptions: New sucralfate [Carafate] 1 gram tablet 1 g PO QACHS Qty: 120 12RF psyllium husk 0.4 gram capsule 0.4 g PO BID Qty: 60 12RF Rx Instructions: Can increase to 4 capsules a day if still having diarrhea Continued albuterol sulfate [Proventil HFA] 90 mcg/actuation HFA aerosol inhaler 2 puff inhalation Q6H PRN (Reason: shortness of breath or wheezing) Qty: 8.5 0RF fluticasone propionate [Allergy Relief (fluticasone)] 50 mcg/actuation spray,suspension 2 spray intranasal BID PRN (Reason: allergies) Qty: 15.8 4RF Rx Instructions: Administer 2 sprays into each nostril once a day as needed for allergies berberine-herbal comb no.18 Capsule 1 cap PO DAILY chlorthalidone 25 mg tablet 25 mg PO DAILY Qty: 90 3RF amlodipine 5 mg tablet 5 mg PO DAILY Qty: 90 3RF losartan 100 mg tablet 100 mg PO DAILY Qty: 90 3RF metformin 1,000 mg tablet 1,000 mg PO BID@0800,1700 Qty: 180 4RF glyburide 5 mg tablet 5 mg PO DAILY Qty: 90 4RF semaglutide 2 mg/dose (8 mg/3 mL) pen injector 2 mg subcut QWEEK Qty: 3 12RF Rx Instructions: for 4 weeks insulin glargine [Lantus Solostar U-100 Insulin] 100 unit/mL (3 mL) insulin pen 25 unit SC DAILY Qty: 15 4RF pantoprazole 40 mg tablet,delayed release (DR/EC) 40 mg PO DAILY Qty: 90 0RF Discontinued polyethylene glycol 3350 17 gram/dose powder 238 g PO ONCE Qty: 238 0RF Rx Instructions: take per colonoscopy instructions Discharge Instructions Additional Instructions: DSU Colonoscopy Post- Op Instructions Instructions for Everyone who is given Anesthesia: For your safety, please do the following for the next twenty-four (24) hours: *Do Not operate a motor vehicle (car, truck, motorcycle, etc.) *Do Not drink alcoholic beverages or use any recreational drugs for the first 24 hours or while taking pain medications. The medications in your body may have a reaction that can be dangerous. *Do Not make any important decisions or sign any important papers. Findings: Bile reflux gastritis Perez diverticula Colon polyps Follow up: 1. No lifting over 20 pounds or strenuous activity for the first 24 hours after your procedure. After 24 hours there are no restrictions on your activity but you may feel fatigued for a few days. 2. After you arrive home you may have a light meal and return to your normal diet as you can tolerate it without feeling sick to your stomach. 3. You may have a bloated, gaseous feeling in your belly (abdomen) after a colonoscopy. Passing gas and belching will help. Walking or lying down on your left side with your knees flexed may relieve the discomfort. Call the office at [phone] (Office) or [phone] (Hospital) right away if you notice any of the following: a.Vomiting of blood or ?coffee ground stools?. b.Rectal bleeding 1Tbsp, blood clots or continuous bleeding. c.Severe belly (abdominal) pain. d.A hard distended belly (abdomen) and an inability to pass gas. 4. Please don?t expect to have a normal BM (bowel movement) for 2-3 days after your procedure. 5. If there are questions regarding the findings of your procedure, please contact your doctor 6. If you are unable to contact your doctor with a problem, contact the hospital at [phone]. 7. Continue all your regular medications unless directed otherwise. I understand the above instructions and have no questions. Signature of Patient or Adult Escort Name of Responsible Adult Escort Signature of Nurse Date/Time Stand Alone Forms: Anesthesia Discharge Inst., Colonoscopy Post Instructions, Press Elijah (DSU) Activity:: See above Diet:: See above Discharge Orders Discharge Orders: Discharge Order (Routine); Ordered 07/15/24 Ordered By: Melia Bishop DS: Diagnosis Discharge Diagnosis (1) Chronic GERD: Status: Acute (2) Chronic diarrhea: Status: Acute (3) Bile reflux gastritis: Status: Acute (4) Colon polyp: Status: Acute
[2024-07-15 10:05] VITALS: BP 127/82; PULSE 93; RESP 16; TEMP 36; O2SAT 97
--- NOTE | 2024-07-15 13:52 | W.ANESPOSTOP ---
Postoperative Evaluation Date, Time and Location Date Performed: 07/15/24 Time Performed: 09:32 Patient Location: Day Surgery Unit Vital Signs Most Recent Imported Vital Signs: Most Recent Vital Signs Temp Pulse Resp BP Pulse Ox 36 C L 93 H 16 127/82 97 07/15/24 10:05 07/15/24 10:05 07/15/24 10:05 07/15/24 10:05 07/15/24 10:05 Pain Score Most Recent Pain Score: Most Recent Pain Score Pain Level 0 07/15/24 10:05 Assessment Mental Status: Awake (Alert & Oriented to Patient Baseline) Airway and Respiratory Function: Patent airway with normal (patient baseline) respiratory exam Cardiovascular Function: Hemodynamically Stable Hydration Status: Adequately Hydrated Nausea & Vomiting: No Nausea or Vomiting Pain: Pt. Denies Any Pain Peripheral Nerve Block: Patient did not receive a nerve block
== END 2024-07-15 10:16 | disposition home or self-care (01) ==
PROVIDERS: PCP Nurse Practitioner Family; Visit Provider Surgery
PROC: (CPT 45380; principal; 2024-07-15 08:15)
DX: K21.9 Gastro-esophageal reflux disease without esophagitis (principal); K29.60 Other gastritis without bleeding; D12.5 Benign neoplasm of sigmoid colon; Z12.11 Encounter for screening for malignant neoplasm of colon; I10 Essential (primary) hypertension; E11.65 Type 2 diabetes mellitus with hyperglycemia; K57.30 Diverticulosis of large intestine without perforation or abscess without bleeding; K31.9 Disease of stomach and duodenum, unspecified; K22.89 Other specified disease of esophagus
CPT/HCPCS: 45380; 43239; 81025; 88305; 88361; J2704

== ENCOUNTER 2024-10-12 17:42 | Outpatient (CLI) | payer BC, SELFPAY ==
--- NOTE | 2024-10-12 18:00 | DI.RAD_ITS ---
Exam(s) XR FOOT RT COMPLETE EXAM: XR FOOT RT COMPLETE CLINICAL HISTORY: Foot pain, injury r/o fracture. TECHNIQUE: 2D digital imaging was performed. COMPARISON: No exams were available for comparison FINDINGS: 3 views No evidence of fracture or diastasis of the Lisfranc joint. Bone density normal. Great toe metatars ophalangeal joint un remarkable. The more lateral the 2 sesamoid bones subjacent to the great toe me tatarsal head is noted to be bipartite. No degenerative changes. No erosions. No radiopaque foreign bodies. Small inferior calcaneal spur noted. IMPRESSION: No acute osseous findings in the foot. DATA REPOSITORY: RADIATION DOSE DELIVERED:
--- NOTE | 2024-10-12 18:00 | DI.RAD_ITS ---
Exam(s) XR ANKLE RT COMPLETE EXAM: XR ANKLE RT COMPLETE CLINICAL HISTORY: lateral ankle pain, injury. TECHNIQUE: 2D digital imaging was performed. COMPARISON: No exams were available for comparison FINDINGS: 3 views No evidence of fracture or widening the ankle mortise. Talar dome unremarkable. Small inferior calc aneal spur is noted. Bone density normal. No osseous lesions. IMPRESSION: No significant osseous findings in the right ankle. DATA REPOSITORY: RADIATION DOSE DELIVERED:
--- NOTE | 2024-10-12 18:34 | DI.VRAD_ITS ---
PROCEDURE INFORMATION: Exam: XR Right Foot Exam date and time: 10/12/2024 6:13 PM Age: 54 years old Clinical indication: Injury or trauma; Other: Dropped heavy object on 2 weeks ago; Blunt trauma; Foot; Right TECHNIQUE: Imaging protocol: Radiologic exam of the right foot. Views: 3 or more views. COMPARISON: No relevant prior studies available. FINDINGS: Bones/joints: Normal. Soft tissues: Normal. IMPRESSION: No acute findings. Dictated and Authenticated by: Hermes Bradshaw MD. Orderin Lottie Vaughn MD
--- NOTE | 2024-10-12 18:35 | DI.VRAD_ITS ---
PROCEDURE INFORMATION: Exam: XR Right Ankle Exam date and time: 10/12/2024 6:15 PM Age: 54 years old Clinical indication: Injury or trauma; Other: Dropped heavy obj on 2 weeks ago; Blunt trauma; Ankle; Right TECHNIQUE: Imaging protocol: Radiologic exam of the right ankle. Views: 3 or more views. COMPARISON: CR XR FOOT RT COMPLETE 10/12/2024 6:13 PM FINDINGS: Bones/joints: Normal. Soft tissues: Normal. IMPRESSION: No acute findings. Dictated and Authenticated by: Hermes Bradshaw MD. Orderin Lottie Vaughn MD
== END 2024-10-12 18:02 ==
LOC: DI 17:44
PROVIDERS: PCP Nurse Practitioner Family; Visit Provider Physician Assistant
DX: M25.571 Pain in right ankle and joints of right foot (principal)
CPT/HCPCS: 73610; 73630